=== PATIENT | male | born 1985 | race African-American/Black ===

== ENCOUNTER 2024-09-14 12:26 | Inpatient (IN) | payer OTHER, SELFPAY ==
--- OUTSIDE RECORDS SUMMARY | 2024-09-14 12:34 | XMS_ITS | Clinical Summary ---
Author Organization [facility] Address [address] [place] [address] Care Team Providers Care Physical Therapist Center Manager Name Role Phone Nguyen Kohler DO Primary Care Provider [phone] Source Comments PLEASE NOTE, if this patient is a minor, it may be UNLAWFUL to discuss sensitive information that is contained in these records (such as FAMILY PLANNING, MENTAL HEALTH or SUBSTANCE ABUSE) with the minor patient's parent or other person without the patient's specific authorization.[facility] Allergies Active Allergy Reactions Criticality Noted Date Comments Haloperidol 04/04/2024 dystonic Medications ARIPiprazole (ABILIFY) 15 mg tablet Take 15 mg by mouth once daily 01/20/2024 Active cholecalciferol (VITAMIN D-3) 25 mcg (1,000 unit) tablet Take 1 Tablet by mouth once daily 90 Tablet 3 04/04/2024 Active prazosin (MINIPRESS) 5 mg capsule Take 1 Capsule by mouth nightly at bedtime 30 Capsule 3 05/03/2024 Active buPROPion HCL (WELLBUTRIN) 100 mg tablet Take 1 Tablet by mouth 2 (two) times daily 90 Tablet 05/03/2024 Active lisinopriL 40 mg tablet Take 1 Tablet by mouth once daily 90 Tablet 3 05/03/2024 Active topiramate (TOPAMAX) 100 mg tablet Take 1 Tablet by mouth 2 (two) times daily 90 Tablet 1 05/03/2024 Active [id number]-[id number] a-fish oil 300-1,000 mg cap Take 1 Capsule by mouth daily 90 Capsule 3 05/03/2024 Active traMADoL (ULTRAM) 50 mg tablet Take 1 Tablet by mouth 3 (three) times daily as needed for pain 60 Tablet 05/16/2024 Active acetaminophen (TYLENOL) 325 mg tablet Take 2 Tablets by mouth every 4 (four) hours as needed for pain 90 Tablet 1 05/31/2024 Active cloNIDine (CATAPRES) 0.1 mg tablet Take 1 Tablet by mouth 2 (two) times daily as needed (anxiety) 90 Tablet 05/31/2024 Active gabapentin (NEURONTIN) 300 mg capsule Take 1 Capsule by mouth 3 (three) times daily 90 Capsule 05/31/2024 Active hydrOXYzine HCL (ATARAX) 25 mg tablet Take 1 Tablet by mouth 3 (three) times daily as needed for anxiety 90 Tablet 05/31/2024 Active Active Problems Problem Noted Date Diagnosed Date Housing insecurity 05/03/2024 Assessment & Plan (05/03/2024 12:20 PM EST): WHO today with [facility] and CHW team at our clinic. 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 Filled out paperwork today for [employer] bus pass and housing form. Provided food from pantry. Primary hypertension 05/03/2024 Assessment & Plan (05/03/2024 12:22 PM EST): Pt with severely elevated BP today without symptoms likely from poorly managed hypertension and pain. Reports not taking BP medications because they are at his moms house and he is not staying there right now. No CP, palpitations, SOB or severe headaches concerning for hypertensive emergency however discussed concern for risk of SAH or end organ damange. 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 Initially planned to wait until evalauted by psych (appt on 05/14) however given increasing stressors and anxiety decision was made to restart these medications today and follow up with psych still to assess/alter medications as needed. Pt reports not taking abilify and did not want this medication now. Assessment & Plan (04/04/2024 12:50 PM EST): Pt had been on abilify 15mg, topiramate 100mg, prazosin 5mg, buproprion 100mg (?BID), clonidine 01mg (prn) though has been out of meds for a month. States he has not seen any psychiatrist in many years. Reports last manic episode was 2-3 months ago after someone bothered me . Reports feeling stable now. - WHO to - urgent referral to for eval and treatment - sent trx for prazosin nightly, clonidine prn in the meantime given pt has been off meds for at least a month at this time MARIA FERNANDA (obstructive sleep apnea) 04/04/2024 Assessment & Plan (04/04/2024 12:57 PM EST): Reports hx of sleep apnea, previously using CPAP several years ago but reports the machine broke and water was shooting out of my mouth . Has not used CPAP since. Reports last sleep study was in 2011. 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 Pt reports he is not a great candidate for surgery. Currently followed by [facility] ortho with follow up on 07/04 for osteotomy discussion. Unfortunately reports he cannot have ambulation devices (rolator/wheelchair) given moving between shelters and friends homes. Given severe pain impairing ability to work and get around and unclear course of surgery will initiate pain regimen here and refer to pain clinic. - started tramadol and gabapentin TID - pt left urine tox and signed controlled substance agreement today - pain clinic referral placed - follow up in 1 month to assess pain control in meantime Assessment & Plan (04/04/2024 12:57 PM EST): See [facility] ortho for further treatment. Last seen on 02/27- Referral for discussion of osteotomy. Advised to consider restarting gabapentin with pain management. Discussed with patient that may consider adding gabapentin but would want pt to see psych first to get recommended medications confirmed. - plan for follow up in 1mo - cont with management by orhto - filled out handicap parking form Encounters Date Type Department Care Team Description 09/12/2024 Patient Outreach [facility] [address] [place] [address] Nguyen Kohler DO 09/03/2024 Patient Outreach [facility] [address] [place] [address] Nguyen Kohler DO from Last 3 Months Immunizations Immunization Administration Dates Next Due TDAP 04/04/2024 Family History Medical History Relation Name Comments Hypertension Maternal Grandfather Hypertension Maternal Grandmother renal carcinoma Maternal Grandmother Relation Name Status Comments Maternal Grandfather Maternal Grandmother Social History Tobacco Use Types Packs/Day Years Used Date Smoking Tobacco: Former Cigarettes 2 2.4 S tarted: 04/04/2022 Smokeless Tobacco: Never Alcohol Use Standard Drinks/Week Comments Not Currently 0 (1 standard drink = 0.6 oz pur e alcohol) Social Connections Answer Date Recorded Connectedness 0 03/21/2024 Financial Resource Strain Answer Date R ecorded Financial Resource Strain 0 2023 Stress Answer Date Recorded Stress 0 03/21/2024 Physical Activity Answer Date Recorded Physical Activity 0 03/21/2024 Food Insecurity Answer Date Recorded Food 2 04/24/2024 Transportation Needs Answer Date Record ed Transportation 2 04/24/2024 Housing Stability Answer Date Recorded Housing 2 04/24/2024 Safety and Environment Answer Date Tobin rded Safety 1 04/24/2024 Utilities Answer Date Recorded Utilities 1 04/24/2024 Employment Answer Date Recorded Stress 0 03/21/2024 Sex and Gender Information Value Date Recorded Sex Assigned at Male 03/21/2024 10:39 AM PST Legal Sex Male 9:16 PM PDT Gender Identity Male 04/04/2024 5:30 AM PST Sexual Orientation Not on file Last Filed Vital Signs Vital Sign Reading Time Taken Comments Blood Pressure 171/112 05/03/2024 9:05 AM EST Pulse 94 05/03/2024 9:00 AM EST Temperature 37.2 ??C (98.9 ??F) 05/03/2024 9:00 AM ES T Respiratory Rate - - Oxygen Saturation 99% 05/03/2024 9:00 AM EST Inhaled Oxygen Concentration - - Weight 158.8 kg (350 lb) 05/03/2024 9:00 AM EST Height 176.5 cm (5' 9.5 ) 05/03/2024 9:00 AM EST Body Mass Index 50.94 05/03/2024 9:00 AM EST Plan of Treatment Health Maintenance Due Date Last Done Comments Anxiety Screening 1985 Imm-Hepatitis A (1 of 2 - Ri sk 2-dose series) 2004 Imm-Hepatitis B (1 of 3 - 19 + 3-dose series) 2004 [id number] () 01/08/2024 Imm-Influenza (#1) 2024 Alcohol and Drug Screen 05/09/2024 04/04/2024 Depression Monitoring 08/01/2024 05/03/2024, Annual Preventive Care Visit 04/04/2025 04/04/2024 Tobacco Screening 05/03/2025 05/03/2024 Lipid Screening 07/14/2025 07/14/2024, 04/04/2024 Diabetes Screening 09/10/2025 09/10/2024, 0 09/03/2024, 08/13/2024, Additional history exists Imm-DTaP/Tdap/Td (2 - Td or Tdap) 04/04/2034 024 HIV Screening Completed 04/04/2024 Hepatitis C Screening Completed 08/13/2024 , 08/13/2024, 04/04/2024 Procedures Procedure Name Priority Date/Time Associated Diagnosis Comments IAAD IA HIV-1 AG W/HIV-1 & HIV-2 ANTBDY SINGLE Routine 04/04/2024 10:47 AM EST Healthcare maintenance HEPATITIS C ANTIBODY WITH RFLX TO HCV RNA PCR W/RFLX TO GENOTYPE Routine 04/04/2024 10:47 AM EST Healthcare maintenance COMPREHENSIVE METABOLIC PANEL Routine 04/04/2024 10:47 AM EST Healthcare maintenance LIPID PANEL Routine 04/04/2024 10:47 AM EST Healthcare maintenance from Last 3 Months or Most Recently Relevant to Health Maintenance Results * IAAD IA HIV-1 AG W/HIV-1 & HIV-2 ANTBDY SINGLE (04/04/2024 10:47 AM EST) HIV AG/AB COMBINED QUALITATIVE NON-REACTI VE NON-REACT LILI [facility] Blood Blood / Unknown 04/04/2024 1 0:47 AM EST 04/04/2024 10:56 AM EST us Eileen Stallings MD LAB - BLOOD DRAW Final Result Performing Organization Address [facility]/ZIP Co de Phone Number [facility] [address] [place] [address], * LIPID PANEL (04/04/2024 10:47 AM EST) CHOLESTEROL 155 <200 mg/dL [facility] Comment: CHOLESTEROL RISK CLASSIFICATION: <200 MG/DL = LOW RISK, ??200 to 239 MG/DL = BORDERLINE/HIGH RISK, ??>239 MG/DL = HIGH RISK. TRIGLYCERIDE 80 40 - 200 MG/DL [facility] HDL CHOLESTEROL 52 >34 mg/dL [facility] Comment: HDL CHOLESTEROL RISK CLASSIFICATION: ??>55 MG/DL = LOW RISK, ??<35 MG/DL = HIGH RISK. LDL CHOLESTEROL, CALCULATED 87 <130 mg/dL [facility] Comment: LDL CHOLESTEROL RISK CLASSIFICATION: <130 MG/DL = LOW RISK, ??130 to 159 MG/DL = BORDERLINE RISK, ??>159 MG/DL = HIGH RISK. Blood Blood / Unknown 04/04/2024 1 0:47 AM EST 04/04/2024 10:56 AM EST us Eileen Stallings MD LAB - BLOOD DRAW Final Result [facility] [address] [place] [address], [place] [phone] from Last 3 Months or Most Recently Relevant to Health Maintenance Insurance [place] MEDICA[place] Care Teams Physical Therapist Center Manager Relationship Specialty Start Date End Date Nguyen Kohler DO [address] [place] [id number] PCP - General Family Medicine, Physician 03/21/24
--- OUTSIDE RECORDS SUMMARY | 2024-09-14 12:34 | XMS_ITS | Encounter Summary ---
Author Organization [facility] Address [address] [place] [address] Care Team Providers Care Color Room Attendant Name Role Phone Nguyen Kohler DO Primary Care Provider [phone] Reason for Visit * Reason Comments Emergency Room Follow Up Encounter Details Date Type Department Care Team ([facility] st Contact Info) Description 09/12/2024 Patient Outreach [facility] Medicine [address] [place] [address] Nguyen Kohler DO [address] [place] [address] Social History Tobacco Use Types Packs/Day Years [...] AM PST Sexual Orientation Not on file documented as of this encounter Progress Notes * Moon Chaudhry - 09/13/2024 8:29 AM EDT 09/13/2024 8:00 AM Type of Visit: Emergency Department Date of ED/UC Visit: 09/12/24 Facility: Other in state Facility Name (In State) [facility] [address] [place] [address] Diagnosis Category/ies: Mental Health Discharge Diagnosis: Suicidal ideation (Primary Dx Disposition: (!) Admitted Records: Please see CareEverywhere for full documentation Routing to PCP and as an FYI. documented in this encounter Plan of Treatment Not on file documented as of this encounter Visit Diagnoses Not on filedocumented in this encounter Additional Health Concerns Assessment Noted Time PHQ-9 Depression Total Score: 12 04/27/ 024 9:00 AM PST documented as of this encounter Care Teams Color Room Attendant Relationship Specialty Start Date End Date Nguyen Kohler DO [address] [place] [id number] PCP - General Family Medicine, Physician 03/21/24 documented as of this encounter
--- OUTSIDE RECORDS SUMMARY | 2024-09-14 12:34 | XMS_ITS | Clinical Summary ---
Author Organization [facility] Address [address] [place] [phone] Phone Care Team Providers Care Lab Analyst Name Role Phone Javed Garcia MD, PhD Primary Care Provider [phone] Ilia Eden MD Unavailable [phone] Allergies Active Allergy Reactions Criticality Noted Date Comments Haloperidol Swelling Medium 02/28/2024 Medications Medication Sig Dispensed Refills Start Date End Date Status acetaminophen (TYLENOL) 325 mg tablet 01/20/2024 Active ARIPiprazole (ABILIFY) 15 MG tablet 01/20/2024 Active buPROPion (WELLBUTRIN) 100 MG immediate release tablet 01/20/2024 Active CHOLECALCIFEROL 25 mcg (1,000 unit) tablet 01/20/2024 Active cloNIDine HCL (CATAPRES) 0.1 MG tablet 01/20/2024 Active lisinopril (PRINIVIL,ZESTRIL) 40 MG tablet 01/20/2024 Active prazosin (MINIPRESS) 5 MG capsule 01/20/2024 Active topiramate (TOPAMAX) 100 MG tablet 01/20/2024 Active Active Problems Problem Noted Date Diagnosed Date 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 Not on jocelynn e 02/23/2024 Are you concerned about learning? Not on file 02/23/2024 No 02/23/2024 No 02/23/2024 Digital Access Answer Date Recorded No 02/23/2024 No 02/23/2024 Reliable internet access at home? Not on file 02/23/2024 Device with a working camera? Not on file Sex and Gender Information Value Date Recorded Sex Assigned at Male 02/17/2024 9:22 AM EDT Gender Identity Male 02/17/2024 9:22 AM EDT Sexual Orientation Straight 02/17/2024 9: 22 AM EDT Last Filed Vital Signs Vital Sign Reading Time Taken Comments Blood Pressure 132/76 02/28/2024 11:11 AM EDT Pulse 63 02/28/2024 11:11 AM EDT Temperature - - Respiratory Rate - - Oxygen Saturation 98% 02/28/2024 11:11 AM EDT Inhaled Oxygen Concentration - - Weight - - Height - - Body Mass Index - - Plan of Treatment Health Maintenance Due Date Last Done Comments CREATININE LEVEL 1985 LIPID PANEL 1985 POTASSIUM LEVEL 1985 DEPRESSION SCREENING 1997 SMOKING Hx and SMOKELESS TOB ACCO SCREENING 1998 HEPATITIS C SCREENING 11/01/2003 HIV ONE-TIME SCREENING (18-6 5 YEARS) 11/01/2003 COVID-19 VACCINE (2023-2 5 season) 2024 Adult Td,Tdap Booster 03/04/2026 03/04/2016 HIB VACCINES Completed 12/01/1987 PNEUMOCOCCAL VACCINES (0-49 years) Aged Out 2015 No longer eligible based on patient's age to complete this topic HEPATITIS A VACCINES Aged Out No long er eligible based on patient's age to complete this topic MENINGOCOCCAL VACCINES (ACWY) Aged Out No longer eligible based on patient's age to complete this topic Medical Devices Not on file Care Teams Lab Analyst Relationship Specialty Start Date End Date Javed Garcia MD, PhD [email or web address] PCP - General Internal Medicine 02/23/24 Ilia Eden MD [address] [place] [id number] [email or web address] 02/17/24 Additional Source Comments The information contained in this document represents components of the legal health record. It is not the complete legal health record.[facility]
[2024-09-14 13:15] VITALS: BP 191/99; PULSE 59; RESP 17; TEMP 36.4; O2SAT 100
--- NOTE | 2024-09-14 13:51 | HO.PSYADMNOT ---
[facility] Date of Service: 09/14/24 Chief Complaint: Crisis Sources of Information: patient interviewed, chart reviewed and crisis/core team assessment reviewed HPI Subjective Notes: Holm Warning and Conditional Voluntary Narrative: Patient is a 38-year-old male with history of bipolar disorder, PTSD and alcohol use disorder who presented to crisis due to suicidal ideation with a plan to slit his wrist secondary to increased depression and hallucinations. Per crisis report, patient self presented to [facility] reporting suicidal ideation with plan to slit his wrists. Patient reports not doing well due to life, being disabled and sleeping in the streets. Patient reports he was released from residential in November 2023 and has been staying on the streets since. Patient reports he wants to return to residential because there was structure and security . Patient reports he has a nephew in [place] that he would like to go live with. Patient reports visual and auditory hallucinations, voices telling him to hurt himself and others. Patient reports homicidal ideation to choke, punch, grab nuts and gouge others. History of incarceration for 8 years. During admission assessment, patient presents alert and oriented x3. Calm and cooperative. Patient reports feeling depressed; patient stated, feeling depressed because I can not even walk and I'm 38. I'm sick of everyone having to take care of me. I need two knee replacements and I am trying to hold out to see if there is something else that they can do. Patient reports he feels suicidal at times but more often feels homicidal. He reports he is not homicidal to anyone in particular. Patient reports auditory hallucinations that are demanding and commanding and visual hallucinations of people that he has never met before. Patient reports he has been drinking a bottle of vodka every few days for the past 3 weeks. He reports daily marijuana use. Patient reports he has not been medication compliant for the past 3 weeks. Patient stated, I have been forgetting to take them. I do not have a stable living situation . Patient reports that he is in hopes of being able to get his mental health together. Past Psychiatric History: Patient does not have outpatient psychiatric providers. History of multiple inpatient psychiatric hospitalizations. denies hx of SA/SIB. Medical Evaluation Reviewed: Yes PMF Family History: Mother and sister: anxiety Social History: Homeless. Single. No kids. Unemployed. Highest level of education completed 11th grade. Did not obtain GED. Substance History: Patient reports alcohol and marijuana use. Denies any other substances. Trauma History: Yes Meds/Allergies Meds Home Medications ?Medication ?Instructions ?Recorded ?Confirmed ?Type benztropine 1 mg tablet 1 mg PO Q6H 09/14/24 09/14/24 History clonidine HCl 0.1 mg tablet 0.1 mg PO BID 09/14/24 09/14/24 History gabapentin 300 mg capsule 300 mg PO TID 09/14/24 09/14/24 History lisinopril 40 mg tablet 40 mg PO DAILY 09/14/24 09/14/24 History lurasidone 80 mg tablet 80 mg PO DAILY 09/14/24 09/14/24 History topiramate 25 mg tablet 25 mg PO BID 09/14/24 09/14/24 History Allergies Allergies Allergy/AdvReac Type Severity Reaction Status Date / Time haloperidol [From HALDOL] Allergy Unknown LOCK JAW Unverified 01/24/20 17:56 From COGENTIN Allergy Unknown LOCK JAW Uncoded 01/24/20 17:56 From HALDOL Allergy Unknown LOCK JAW Uncoded 01/24/20 17:56 Mental Status Exam Mental Status Exam Patient Appearance: Appropriate Patient Orientation: Person, Place, Time and Situation Level of Consciousness: Awake and Alert Patient Behavior: Appropriate, Cooperative and Good Eye Contact Mood Description: Calm Affect Description: Calm Ability to Follow Directions: Good Speech Pattern: Clear and Appropriate Memory Description: Intact Hallucinations: Auditory and Visual Delusions: Not Present Thought Process: Intact Thought Content: positive for Intact Assessment & Plan Assessment & Plan (1) Bipolar disorder: Status: Acute Code(s): F31.9 - Bipolar disorder, unspecified (2) PTSD (post-traumatic stress disorder): Status: Acute Code(s): F43.10 - Post-traumatic stress disorder, unspecified Plan Patient is a 38-year-old male with history of bipolar disorder, PTSD and alcohol use disorder who presented to crisis due to suicidal ideation with a plan to slit his wrist secondary to increased depression and hallucinations. Plan: CV 5 minute safety checks Continue home medications [facility] protocol Obtain collateral Referral to outpatient psychiatric providers Discharge planning Patient educated on: diagnosis and medication risk/benefits Reason for continued inpatient stay Substantial Risk for: harm to self, harm to others and med/psych decompensation Statement Statement: I have reviewed the history and physical and performed a pertinent examination on my patient. No changes have occurred unless specified. If the History and Physical was not performed prior to admission, the Hospitalist's service will be consulted for completing the admission physical. Time Spent With Patient Time: Total time managing care of this patient today _60___ minutes.
[2024-09-14 13:58] VITALS: BMI 49.6
[2024-09-14] MEDS: Gabapentin 300 MG CAPSULE PO ×2 (15:20→21:05)
[2024-09-14] MEDS: Acetaminophen 325 MG TABLET 650 MG PO ×2 (15:47→21:05)
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
--- NOTE | 2024-09-14 15:53 | PC.ADMIT ---
Patient is a 38 year old male admitted from [facility] on a CV with a dx of Bipolar Disorder with Psychotic features. Patient initially presented with reports of SI with a plan to slit his wrists. Patient stated he came in d/t increased depression r/t decreased immobility/independence. 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 Patient states between this and his current living situation (he is currently homeless), he has had trouble coping, I don't drink every day but when I feel like shit I'll drink a lot, and the last 3 weeks I've just been really depressed that I can't do shit for myself . Patient denies any hx of Suicidal attempts but endorses vague HI I'm more homicidal than suicidal , patient unable to give an answer on who HI is directed towards and when asked if he felt like he would kill/harm someone patient stated I don't know if I can answer that, I'm on probation right now I can't say the wrong things . Pt also endorses command and demanding AH They tell me to do random things, like throw that, or yell something out and VH that he calls his imaginary friends . Patient has been off his medications for three weeks, and states he doesn't have time to take them. His appetite is good but sleep has been poor. Pt reports being diagnosed with sleep apnea but states his CPAP is broken and thus has not been using one . His TOX screen was positive for marijuana and Ethanol level 124 on initial admission to [facility] (denies any hx of seizures from withdrawals). Patient utilizes a walker, and was given a hospital one upon admission to the unit (placed on 5 minute checks for safety). Skin check was unremarkable, and patient states his goal is To fix my mental health, get my medications situated and be healthier .
--- NOTE | 2024-09-14 16:49 | PC.NURSE ---
This nurse attempted to call the patients ict customer support officer Cruz Castellano (per his request) to inform her that the patient is here. Cruz did not answer, and our unit phone number was left on her voicemail for her to reach back out to us.
[2024-09-14 20:11] VITALS: BP 167/95; PULSE 98; RESP 18; TEMP 37.1; O2SAT 98
[2024-09-14] MEDS: cloNIDine HCL 0.1 MG TABLET PO (21:05)
[2024-09-14] MEDS: Topiramate 25 MG TABLET PO (21:05)
[2024-09-15 08:00] VITALS: BP 136/90; PULSE 75; RESP 16; TEMP 36.8; O2SAT 100
[2024-09-15] MEDS: Gabapentin 300 MG CAPSULE PO ×3 (08:34→22:23)
[2024-09-15] MEDS: Thiamine HCL 100 MG TABLET PO (08:35)
[2024-09-15] MEDS: NaPROXEN 500 MG TABLET PO ×2 (08:35→17:15)
[2024-09-15] MEDS: cloNIDine HCL 0.1 MG TABLET PO ×2 (08:35→22:22)
[2024-09-15] MEDS: Topiramate 25 MG TABLET PO ×2 (08:36→22:23)
[2024-09-15] MEDS: Lurasidone HCl 80 MG TABLET PO (08:36)
[2024-09-15] MEDS: lisinopriL 40 MG TABLET PO (08:36)
[2024-09-15] MEDS: Nicotine 21 MG PATCH.TD24 TRANSDERMA (08:37)
[2024-09-15] MEDS: Lidocaine 4 % Patch ADH..PATCH 2 PATCH TRANSDERMA (08:40)
[2024-09-15 10:29] LABS: Estimated Average Glucose 103 mg/dL; Hemoglobin A1C 125.5488 umol/L; Hemoglobin A1c % 5.2 % (<6.0); Total Hemoglobin (HGBA1C) 3809.1329 umol/L
[2024-09-15 10:40] LABS: Alanine Aminotransferase 22 U/L (0-40); Albumin Level 4.3 g/dL (3.5-5.0); Alkaline Phosphatase 95 U/L (39-117); Anion Gap 15 (12-20); Aspartate Amino Transferase 21 U/L (5-37); Bilirubin Total 0.3 mg/dL (0.0-1.0); Blood Urea Nitrogen 22 mg/dL (9-16); Calcium 9.7 mg/dL (8.4-10.2); Carbon Dioxide 27 mmol/L (22-29); Chloride 105 mmol/L (96-108); Cholesterol 194 mg/dL (<200); Creatinine Clr Calc Pharmacy 139.8; Estimated Glomerular Filt Rate > 60; Glucose Random 76 mg/dL (60-115); HDL Cholesterol 55 mg/dL (>40); LDL Cholesterol Calculated 113 mg/dL (<100); Potassium 4.6 mmol/L (3.3-5.1); Sodium 142 mmol/L (135-145); Triglycerides 130 mg/dL (<150)
--- NOTE | 2024-09-15 10:59 | HO.PSYCHPN ---
Subjective Subjective Date of Service: 09/15/24 Reason For Visit: Crisis Subjective Notes: Conditional Voluntary Healthcare Proxy: No Guardianship: No Medical Problems Affecting Mental Status: No Interim History: Patient was seen and discussed in rounds today. Records and plans were reviewed. He has been stable and has settled in. He is requesting to use his own walker, demonstrating that the hospital walker is much more unsafe, being able to take it apart in several sec etc.. I okayed that order. Also requesting to use his own coffee grind. Requesting to continue vitamin-D but does not know the dose so I ordered 1 daily tablet of vitamin-D. Eating and sleeping adequately. No active SI. No other complaints or changes. Review of Systems Review of Systems Yes all other systems are reviewed and are negative Mental Status Exam Mental Status Exam Patient Appearance: Appropriate Patient Orientation: Person, Place, Time and Situation Level of Consciousness: Awake and Alert Patient Behavior: Appropriate, Cooperative and Good Eye Contact Mood Description: Calm Affect Description: Calm Ability to Follow Directions: Good Speech Pattern: Clear and Appropriate Memory Description: Intact Hallucinations: Auditory and Visual Delusions: Not Present Thought Process: Intact Thought Content: positive for Intact Diagnostics Vital Signs (24Hr): Vital Signs - 24 hr 09/14/24 13:15 09/14/24 20:11 09/15/24 08:00 Temperature 97.5 F 98.7 F 98.2 F Pulse Rate 59 98 75 Respiratory Rate 17 18 16 Blood Pressure 191/99 H 167/95 H 136/90 H Pulse Oximetry 100 98 100 Oxygen Delivery Method Room Air Room Air Room Air BMI result Body Mass Index 49.6 Labs 09/15/24 10:02 Labs: Laboratory Results - last 48 hr 09/15/24 10:02 Sodium 142 Potassium 4.6 Chloride 105 Carbon Dioxide 27 Anion Gap 15 BUN 22 H Creatinine 1.08 Estim Creat Clear Calc 139.8 Estimated GFR > 60 Random Glucose 76 Estimat Average Glucose 103 Hemoglobin A1c % 5.2 Calcium 9.7 Total Bilirubin 0.3 AST 21 ALT 22 Alkaline Phosphatase 95 Total Protein 8.0 Albumin 4.3 Triglycerides 130 Cholesterol 194 LDL Cholesterol, Calc 113 H HDL Cholesterol 55 Medications Medications Current Medications Acetaminophen (Acetaminophen 325 Mg Tablet) 650 mg PO Q6H PRN PRN Reason: Headache/Pain, Scale 1-10 Last Admin: 09/14/24 21:05 Dose: 650 mg Al Hydroxide/Mg Hydroxide (Magnesium Hydrox/Alum Hydrox 30 Ml Oral.Susp) 30 ml PO Q6H PRN PRN Reason: Heartburn/Nausea Clonidine HCl (Clonidine Hcl 0.1 Mg Tablet) 0.1 mg PO BID [facility]; Protocol Last Admin: 09/15/24 08:35 Dose: 0.1 mg Gabapentin (Gabapentin 300 Mg Capsule) 300 mg PO TID [facility] Last Admin: 09/15/24 08:34 Dose: 300 mg Hydroxyzine HCl (Hydroxyzine Hcl 25 Mg Tablet) 25 mg PO Q6H PRN PRN Reason: mild anxiety Lidocaine (Lidocaine 4 % Patch Adh..Patch) 2 patch TRANSDERMA DAILY [facility]; Protocol Last Admin: 09/15/24 08:40 Dose: 2 patch Lisinopril (Lisinopril 40 Mg Tablet) 40 mg PO DAILY [facility]; Protocol Last Admin: 09/15/24 08:36 Dose: 40 mg Lorazepam (Lorazepam 1 Mg Tablet) 1 mg PO Q2H PRN PRN Reason: CIWA 8-11 Lorazepam (Lorazepam 1 Mg Tablet) 2 mg PO Q2H PRN PRN Reason: CIWA 12-15 Lorazepam (Lorazepam 1 Mg Tablet) 3 mg PO Q2H PRN PRN Reason: CIWA > 15, and call Lurasidone HCl (Lurasidone Hcl 80 Mg Tablet) 80 mg PO DAILY [facility] Last Admin: 09/15/24 08:36 Dose: 80 mg Magnesium Hydroxide (Milk Of Magnesia 30 Ml Oral.Susp) 30 ml PO DAILY PRN PRN Reason: Constipation Melatonin (Melatonin 3 Mg Tablet) 9 mg PO BEDTIME PRN PRN Reason: Insomnia Naproxen (Naproxen 500 Mg Tablet) 500 mg PO BIDWM [facility] Last Admin: 09/15/24 08:35 Dose: 500 mg Nicotine (Nicotine 21 Mg Patch.Td24) 21 mg TRANSDERMA DAILY [facility] Last Admin: 09/15/24 08:37 Dose: 21 mg Nicotine Polacrilex (Nicotine Polacrilex 2 Mg Gum) 4 mg BUCCAL Q2H PRN PRN Reason: Nicotine Cravings Olanzapine (Olanzapine 5 Mg Tablet) 5 mg PO Q4H PRN PRN Reason: agitation Thiamine HCl (Thiamine Hcl 100 Mg Tablet) 100 mg PO DAILY [facility] Last Admin: 09/15/24 08:35 Dose: 100 mg Topiramate (Topiramate 25 Mg Tablet) 25 mg PO BID [facility] Last Admin: 09/15/24 08:36 Dose: 25 mg Tramadol HCl (Tramadol Hcl 50 Mg Tablet) 50 mg PO Q6H PRN PRN Reason: severe knee pain Trazodone HCl (Trazodone Hcl 50 Mg Tablet) 50 mg PO BEDTIME MRX1 PRN PRN Reason: Insomnia Vitamin D (Cholecalciferol (Vitamin D3) 25 Mcg Tablet) 50 mcg PO DAILY VIKAS Allergies Allergies Allergy/AdvReac Type Severity Reaction Status Date / Time haloperidol [From HALDOL] Allergy Unknown LOCK JAW Verified 09/14/24 21:50 From COGENTIN Allergy Unknown LOCK JAW Uncoded 01/24/20 17:56 From HALDOL Allergy Unknown LOCK JAW Uncoded 01/24/20 17:56 Assessment & Plan Assessment & Plan (1) Bipolar disorder: Status: Acute Code(s): F31.9 - Bipolar disorder, unspecified (2) PTSD (post-traumatic stress disorder): Status: Acute Code(s): F43.10 - Post-traumatic stress disorder, unspecified Plan Patient is a 38-year-old male with history of bipolar disorder, PTSD and alcohol use disorder who presented to crisis due to suicidal ideation with a plan to slit his wrist secondary to increased depression and hallucinations. Plan: CV 5 minute safety checks Continue home medications [facility] protocol Obtain collateral Referral to outpatient psychiatric providers Discharge planning 09/15: Continue current regimen and plans Patient educated on: medication risk/benefits Reason for continued inpatient stay Substantial Risk for: harm to self and med/psych decompensation Time Spent With Patient Time: Total time managing care of this patient today ____ minutes.
[2024-09-15] MEDS: Cholecalciferol (Vitamin D3) 25 MCG TABLET 50 MCG PO (11:08)
[2024-09-15 21:26] VITALS: BP 169/96; PULSE 88; RESP 18; TEMP 36.9; O2SAT 99
[2024-09-15] MEDS: Melatonin 3 MG TABLET 9 MG PO (22:35)
[2024-09-15] MEDS: traZODone HCL 50 MG TABLET PO (22:35)
[2024-09-15] MEDS: traMADoL HCL 50 MG TABLET PO (22:35)
[2024-09-15] MEDS: hydrOXYzine HCL 25 MG TABLET PO (22:35)
[2024-09-15] MEDS: Acetaminophen 325 MG TABLET 650 MG PO (22:36)
[2024-09-16 07:48] VITALS: BP 143/91; PULSE 72; RESP 16; TEMP 36.4; O2SAT 99
[2024-09-16] MEDS: Lurasidone HCl 80 MG TABLET PO (08:24)
[2024-09-16] MEDS: NaPROXEN 500 MG TABLET PO ×2 (08:24→16:33)
[2024-09-16] MEDS: Topiramate 25 MG TABLET PO ×2 (08:24→22:34)
[2024-09-16] MEDS: Cholecalciferol (Vitamin D3) 25 MCG TABLET 50 MCG PO (08:24)
[2024-09-16] MEDS: Gabapentin 300 MG CAPSULE PO ×3 (08:24→22:32)
[2024-09-16] MEDS: Thiamine HCL 100 MG TABLET PO (08:24)
[2024-09-16] MEDS: lisinopriL 40 MG TABLET PO (08:24)
[2024-09-16] MEDS: cloNIDine HCL 0.1 MG TABLET PO (08:24)
[2024-09-16] MEDS: Acetaminophen 325 MG TABLET 650 MG PO ×3 (09:48→22:41)
[2024-09-16] MEDS: traMADoL HCL 50 MG TABLET PO ×3 (09:48→22:41)
[2024-09-16] MEDS: Nicotine 21 MG PATCH.TD24 TRANSDERMA (09:48)
--- NOTE | 2024-09-16 10:15 | HO.PSYCHPN ---
Subjective Subjective Date of Service: 09/16/24 Reason For Visit: Crisis Subjective Notes: Conditional Voluntary Healthcare Proxy: No Guardianship: No Medical Problems Affecting Mental Status: No Interim History: Patient was seen and discussed in rounds today. Records and plans were reviewed. He is doing well and has been stable. He is not sleeping and I increased his trazodone to 100 mg, clonidine to 0 point 0 2 mg and he has been on prazosin 10 mg which I resumed. No SI. No mood instability. CIWA was discontinued. Review of Systems Review of Systems Sleep Yes all other systems are reviewed and are negative Mental Status Exam Mental Status Exam Patient Appearance: Appropriate Patient Orientation: Person, Place, Time and Situation Level of Consciousness: Awake and Alert Patient Behavior: Appropriate, Cooperative and Good Eye Contact Mood Description: Calm Affect Description: Calm Ability to Follow Directions: Good Speech Pattern: Clear and Appropriate Memory Description: Intact Hallucinations: Auditory and Visual Delusions: Not Present Thought Process: Intact Thought Content: positive for Intact Diagnostics Vital Signs (24Hr): Vital Signs - 24 hr 09/15/24 21:26 09/16/24 07:48 Temperature 98.5 F 97.6 F Pulse Rate 88 72 Respiratory Rate 18 16 Blood Pressure 169/96 H 143/91 H Pulse Oximetry 99 99 Oxygen Delivery Method Room Air BMI result Body Mass Index 49.6 Labs 09/15/24 10:02 Labs: Laboratory Results - last 48 hr 09/15/24 10:02 Sodium 142 Potassium 4.6 Chloride 105 Carbon Dioxide 27 Anion Gap 15 BUN 22 H Creatinine 1.08 Estim Creat Clear Calc 139.8 Estimated GFR > 60 Random Glucose 76 Estimat Average Glucose 103 Hemoglobin A1c % 5.2 Calcium 9.7 Total Bilirubin 0.3 AST 21 ALT 22 Alkaline Phosphatase 95 Total Protein 8.0 Albumin 4.3 Triglycerides 130 Cholesterol 194 LDL Cholesterol, Calc 113 H HDL Cholesterol 55 Medications Medications Current Medications Acetaminophen (Acetaminophen 325 Mg Tablet) 650 mg PO Q6H PRN PRN Reason: Headache/Pain, Scale 1-10 Last Admin: 09/16/24 09:48 Dose: 650 mg Al Hydroxide/Mg Hydroxide (Magnesium Hydrox/Alum Hydrox 30 Ml Oral.Susp) 30 ml PO Q6H PRN PRN Reason: Heartburn/Nausea Clonidine HCl (Clonidine Hcl 0.2 Mg Tablet) 0.2 mg PO BID [facility]; Protocol Gabapentin (Gabapentin 300 Mg Capsule) 300 mg PO TID [facility] Last Admin: 09/16/24 08:24 Dose: 300 mg Hydroxyzine HCl (Hydroxyzine Hcl 25 Mg Tablet) 25 mg PO Q6H PRN PRN Reason: mild anxiety Last Admin: 09/15/24 22:35 Dose: 25 mg Lidocaine (Lidocaine 4 % Patch Adh..Patch) 2 patch TRANSDERMA DAILY [facility]; Protocol Last Admin: 09/15/24 08:40 Dose: 2 patch Lisinopril (Lisinopril 40 Mg Tablet) 40 mg PO DAILY [facility]; Protocol Last Admin: 09/16/24 08:24 Dose: 40 mg Lorazepam (Lorazepam 1 Mg Tablet) 1 mg PO Q2H PRN PRN Reason: CIWA 8-11 Lorazepam (Lorazepam 1 Mg Tablet) 2 mg PO Q2H PRN PRN Reason: CIWA 12-15 Lorazepam (Lorazepam 1 Mg Tablet) 3 mg PO Q2H PRN PRN Reason: CIWA > 15, and call Lurasidone HCl (Lurasidone Hcl 80 Mg Tablet) 80 mg PO DAILY [facility] Last Admin: 09/16/24 08:24 Dose: 80 mg Magnesium Hydroxide (Milk Of Magnesia 30 Ml Oral.Susp) 30 ml PO DAILY PRN PRN Reason: Constipation Melatonin (Melatonin 3 Mg Tablet) 9 mg PO BEDTIME PRN PRN Reason: Insomnia Last Admin: 09/15/24 22:35 Dose: 9 mg Naproxen (Naproxen 500 Mg Tablet) 500 mg PO BIDWM [facility] Last Admin: 09/16/24 08:24 Dose: 500 mg Nicotine (Nicotine 21 Mg Patch.Td24) 21 mg TRANSDERMA DAILY [facility] Last Admin: 09/16/24 09:48 Dose: 21 mg Nicotine Polacrilex (Nicotine Polacrilex 2 Mg Gum) 4 mg BUCCAL Q2H PRN PRN Reason: Nicotine Cravings Olanzapine (Olanzapine 5 Mg Tablet) 5 mg PO Q4H PRN PRN Reason: agitation Prazosin HCl (Prazosin Hcl 5 Mg Capsule) 10 mg PO BEDTIME [facility]; Protocol Thiamine HCl (Thiamine Hcl 100 Mg Tablet) 100 mg PO DAILY [facility] Last Admin: 09/16/24 08:24 Dose: 100 mg Topiramate (Topiramate 25 Mg Tablet) 25 mg PO BID [facility] Last Admin: 09/16/24 08:24 Dose: 25 mg Tramadol HCl (Tramadol Hcl 50 Mg Tablet) 50 mg PO Q6H PRN PRN Reason: severe knee pain Last Admin: 09/16/24 09:48 Dose: 50 mg Trazodone HCl (Trazodone Hcl 100 Mg Tablet) 100 mg PO BEDTIME MRX1 PRN PRN Reason: Insomnia Vitamin D (Cholecalciferol (Vitamin D3) 25 Mcg Tablet) 50 mcg PO DAILY [facility] Last Admin: 09/16/24 08:24 Dose: 50 mcg Allergies Allergies Allergy/AdvReac Type Severity Reaction Status Date / Time haloperidol [From HALDOL] Allergy Unknown LOCK JAW Verified 09/14/24 21:50 From COGENTIN Allergy Unknown LOCK JAW Uncoded 01/24/20 17:56 From HALDOL Allergy Unknown LOCK JAW Uncoded 01/24/20 17:56 Assessment & Plan Assessment & Plan (1) Bipolar disorder: Status: Acute Code(s): F31.9 - Bipolar disorder, unspecified (2) PTSD (post-traumatic stress disorder): Status: Acute Code(s): F43.10 - Post-traumatic stress disorder, unspecified Plan Patient is a 38-year-old male with history of bipolar disorder, PTSD and alcohol use disorder who presented to crisis due to suicidal ideation with a plan to slit his wrist secondary to increased depression and hallucinations. Plan: CV 5 minute safety checks Continue home medications CIWA protocol Obtain collateral Referral to outpatient psychiatric providers Discharge planning 09/15: Continue current regimen and plans 09/16: Continue current regimen and plans. Discontinued CIWA. Increase trazodone, clonidine and added prazosin Patient educated on: medication risk/benefits Reason for continued inpatient stay Substantial Risk for: med/psych decompensation Time Spent With Patient Time: Total time managing care of this patient today ____ minutes.
[2024-09-16] MEDS: Lidocaine 4 % Patch ADH..PATCH 2 PATCH TRANSDERMA (12:23)
[2024-09-16 20:00] VITALS: BP 135/78; PULSE 90; RESP 16; TEMP 36.6; O2SAT 100
[2024-09-16 22:32] VITALS: BP 135/78
[2024-09-16] MEDS: Prazosin HCL 5 MG CAPSULE 10 MG PO (22:32)
[2024-09-16 22:33] VITALS: BP 135/78
[2024-09-16] MEDS: cloNIDine HCL 0.2 MG TABLET PO (22:33)
[2024-09-16] MEDS: traZODone HCL 100 MG TABLET PO (22:40)
[2024-09-16] MEDS: Melatonin 3 MG TABLET 9 MG PO (22:40)
[2024-09-16] MEDS: hydrOXYzine HCL 25 MG TABLET PO (22:43)
[2024-09-16] MEDS: Nicotine Polacrilex 2 MG GUM 4 MG BUCCAL (22:43)
[2024-09-17] MEDS: traZODone HCL 100 MG TABLET PO (03:18)
[2024-09-17] MEDS: hydrOXYzine HCL 25 MG TABLET PO (03:18)
[2024-09-17 07:15] VITALS: BP 130/71; PULSE 87; RESP 14; TEMP 36.5; O2SAT 99
[2024-09-17] MEDS: Gabapentin 300 MG CAPSULE PO (08:46)
[2024-09-17] MEDS: NaPROXEN 500 MG TABLET PO (08:46)
[2024-09-17] MEDS: Thiamine HCL 100 MG TABLET PO (08:46)
[2024-09-17 08:47] VITALS: BP 130/71
[2024-09-17] MEDS: lisinopriL 40 MG TABLET PO (08:47)
[2024-09-17] MEDS: Topiramate 25 MG TABLET PO (08:47)
[2024-09-17] MEDS: Cholecalciferol (Vitamin D3) 25 MCG TABLET 50 MCG PO (08:47)
[2024-09-17] MEDS: Lurasidone HCl 80 MG TABLET PO (08:47)
[2024-09-17] MEDS: traMADoL HCL 50 MG TABLET PO (08:56)
[2024-09-17] MEDS: Acetaminophen 325 MG TABLET 650 MG PO (08:56)
[2024-09-17] MEDS: Lidocaine 4 % Patch ADH..PATCH 2 PATCH TRANSDERMA (11:14)
[2024-09-17] MEDS: Nicotine 21 MG PATCH.TD24 TRANSDERMA (11:15)
--- NOTE | 2024-09-17 11:40 | PC.NURSE ---
Patient submitted three day notice.
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
[2024-09-20 15:18] LABS: Vitamin D 25-OH, D2 <4 ng/mL; Vitamin D 25-OH, D3 22 ng/mL; Vitamin D 25-OH, Total 22 ng/mL (30-100)
== END 2024-09-17 11:54 | disposition home or self-care (01) | DRG 753 ==
PROVIDERS: Psychiatry & Neurology Psychiatry; Admitting Provider Psychiatry & Neurology Psychiatry; Responsible Provider Registered Nurse; Visit Provider Psychiatry & Neurology Psychiatry
DX: F31.9 Bipolar disorder, unspecified (principal); R45.851 Suicidal ideations; E66.01 Morbid (severe) obesity due to excess calories; G47.33 Obstructive sleep apnea (adult) (pediatric); F43.12 Post-traumatic stress disorder, chronic; M92.513 Juvenile osteochondrosis of proximal tibia, bilateral; I10 Essential (primary) hypertension; Z68.42 Body mass index [BMI] 45.0-49.9, adult; Z71.3 Dietary counseling and surveillance; Z59.02 Unsheltered homelessness; Z79.899 Other long term (current) drug therapy
CPT/HCPCS: 36415; 80053; 80061; 82306; 83036; 94660

== ENCOUNTER → 2024-09-14 12:26 | Outpatient (BNV) | payer OTHER, SELFPAY | PROVIDERS: Admitting Provider Psychiatry & Neurology Psychiatry; Visit Provider Psychiatry & Neurology Psychiatry | DX: F31.4 Bipolar disorder, current episode depressed, severe, without psychotic features (principal); F43.10 Post-traumatic stress disorder, unspecified | CPT/HCPCS: 99232; 99233 ==

== ENCOUNTER → 2024-09-14 12:26 | Outpatient (BNV) | payer OTHER, SELFPAY | PROVIDERS: Admitting Provider Psychiatry & Neurology Psychiatry; Visit Provider Nurse Practitioner Family | DX: I10 Essential (primary) hypertension (principal) | CPT/HCPCS: 99222 ==

== ENCOUNTER 2024-09-17 13:40 | Emergency (ER) | payer OTHER, SELFPAY ==
--- NOTE | ~2024-09-17 | CT_ITS ---
EXAMINATION: CT ANGIOGRAM CHEST CLINICAL INFORMATION: Dizziness. Positive troponin. COMPARISON: May 19, 2012 is not available on PACS. TECHNIQUE: Multiple axial images were obtained through the chest after the administration of 100 mL of Omnipaque 350 intravenous contrast. Extensive vascular post-processing including two-dimensional and three-dimensional reformatted images were created and reviewed on an independent workstation. SmartPrep technique. This CT examination was performed using dose optimization techniques as appropriate, variously including the following: *Automated exposure control *Adjustment of mA and/or kV according to patient size (this includes techniques or standardized protocols for targeted exams where dose is matched to indication/reason for exam; i.e. extremities or head) *Use of iterative reconstruction technique DLP: 589 mGy centimeter. FINDINGS: Limited by patient's motion artifact. The main pulmonary artery or its main branches and subsegmental pulmonary branches are patent without intraluminal filling defects. No aneurysm or dissection, thoracic aorta. No pericardial effusion. There is an 11 mm metallic hollow foreign body dislodged and the posterior segment right upper lung lobe similar to the one described on prior CT dated 2012. Pulmonary patchy groundglass, peripheral lower lung lobes. Old healed rib fractures in the anterior and posterior aspect of the ribs right hemithorax. No pleural effusion. No hemothorax. Heart is not enlarged. Prominent inferior vena cava. Collapsed gallbladder. Mild multilevel thoracic spondylosis without acute fracture or gross listhesis. CT/CT angio chest PE protocol IMPRESSION: No acute pulmonary artery emboli. No aneurysm or dissection. Nonspecific pulmonary patchy groundglass. Fleischner guidelines were followed. Electronically signed by: Arie Kenney MD 09/17/2024 03:33 PM EDT
[2024-09-17 13:57] VITALS: BP 99/63; PULSE 122; RESP 18; TEMP 36.8; O2SAT 99; BMI 50.8
--- NOTE | 2024-09-17 14:03 | ECG_ITS ---
Test Reason : dizzy spells Blood Pressure : */* mmHG Vent. Rate : 111 BPM Atrial Rate : 111 BPM P-R Int : 150 ms QRS Dur : 90 ms QT Int : 346 ms P-R-T Axes : 55 7 33 degrees QTcB Int : 470 ms Sinus tachycardia Otherwise normal ECG No previous ECGs available Referred By: Clinton Sanchez Electronically Signed By: RALPH MONTANEZ MD
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
[2024-09-17 14:20] LABS: MANUAL DIFF FLAG NO
[2024-09-17 14:22] LABS: Basophils Absolute Auto 0.1 X10*3/uL (0.0-0.2); Basophils Percent Auto 0.8 % (0-2); Eosinophils Absolute Auto 0.9 X10*3/uL (0.0-0.4); Eosinophils Percent Auto 14.3 % (0-4); Hematocrit 40.7 % (42.0-52.0); Hemoglobin 13.1 g/dl (14.0-18.0); Imm Gran Abs Auto 0.02 X10*3/uL (0.00-0.03); Imm Gran Pct Auto 0.3 % (0.0-0.4); Lymphocytes Absolute Auto 1.6 X10*3/uL (1.2-4.9); Mean Corpuscular HGB Conc 32.2 g/dl (31.0-36.0); Mean Platelet Volume 9.2 fL (9.4-12.4); Monocytes Absolute Auto 0.5 X10*3/uL (0.1-1.2); Monocytes Percent Auto 8.2 % (2-11); Neutrophils Percent Auto 49.4 % (45-73); Platelet Count 190 X10*3/uL (160-400); Red Blood Count 4.52 X10*6/uL (4.60-5.80); Red Cell Distribution Width 14.4 % (11.0-16.0); White Blood Count 6.1 X10*3/uL (4.8-10.8)
[2024-09-17 14:37] LABS: Alanine Aminotransferase 17 U/L (0-40); Alkaline Phosphatase 83 U/L (39-117); Anion Gap 11 (12-20); Aspartate Amino Transferase 26 U/L (5-37); Bilirubin Total 0.2 mg/dL (0.0-1.0); Blood Urea Nitrogen 29 mg/dL (9-16); Calcium 9.1 mg/dL (8.4-10.2); Carbon Dioxide 25 mmol/L (22-29); Chloride 108 mmol/L (96-108); Creatinine Clr Calc Pharmacy 127.5; Estimated Glomerular Filt Rate > 60; Glucose Random 104 mg/dL (60-115); Lipase 20 U/L (8-78); Potassium 4.5 mmol/L (3.3-5.1); Sodium 139 mmol/L (135-145); Total Protein 7.1 g/dL (6.5-8.0)
[2024-09-17 14:42] LABS: Troponin-I High Sensitivity 45.5 ng/L (<3.5-35.0)
--- OUTSIDE RECORDS SUMMARY | 2024-09-17 14:49 | XMS_ITS | Clinical Summary ---
Author Organization [facility] Address [address] [place] [address] Care Team Providers Care Training Development Manager Name Role Phone Nguyen Kohler DO Primary Care Provider [phone] Source Comments PLEASE NOTE, if this patient [...] times daily 90 Tablet 1 05/03/2024 Active [id number] a-fish oil 300-1,000 mg cap Take 1 [...] (05/03/2024 12:20 PM EST): WHO today with [facility] and CHW team at our clinic. Pt with short term housing however requiring long-term housing plan. Filled out paperwork today for [employer] bus pass and housing form. Provided food [...] rx for lisinopril to pharmacy today to shrimp picker - follow up in 1 month and if continues to be elevated despite taking regularly will add another agent Bipolar 1 disorder ([facility]) 04/04/2024 Assessment & Plan (05/03/2024 12:23 PM [...] 2011. 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 Pt reports he is not a great candidate for surgery. Currently followed by [facility] ortho with follow up on 07/04 for [...] & Plan (04/04/2024 12:57 PM EST): See [facility] ortho for further treatment. Last seen on [...] Department Care Team Description 09/12/[address] [facility] [address] [place] [address] Nguyen Kohler DO 09/03/[address] [facility] [address] [place] [address] Nguyen Kohler DO from Last 3 Months Immunizations Immunization Administration Dates Next Due TDAP 04/04/2024 Family History Medical History Relation Name Comments Hypertension Maternal Grandfather Hypertension Maternal Grandmother renal carcinoma Maternal Grandmother Relation Name Status Comments Maternal Grandfather Maternal Grandmother Social History Tobacco Use Types Packs/Day Years Used Date Smoking Tobacco: Former Cigarettes 2 2.5 S tarted: 04/04/2022 Smokeless Tobacco: Never Alcohol [...] 3 - 19 + 3-dose series) 2004 [id number] () 01/08/2024 Imm-Influenza (#1) 2024 03/04/2016, 1 , 01/29/2013, Additional history exists Alcohol and Drug Screen 05/09/2024 04/04/2024 Depression Monitoring 08/01/2024 05/03/2024, 024 Annual Preventive Care Visit 04/04/2025 04/04/2024 Tobacco Screening 05/03/2025 05/03/2024 Lipid Screening 07/14/2025 07/14/2024, 04/04/2024 Diabetes Screening 09/10/2025 09/10/2024, 0 09/03/2024, 08/13/2024, Additional history exists Imm-DTaP/Tdap/Td (4 - Td or Tdap) 04/04/2034 04/04/2024, 03/04/2016, 03/06/2012, Additional history exists HIV Screening Completed 04/04/2024 Hepatitis C Screening [...] AG/AB COMBINED QUALITATIVE NON-REACTI VE NON-REACT LILI [facility] Blood Blood / Unknown 04/04/2024 1 0:47 AM EST 04/04/2024 10:56 AM EST us Eileen Stallings MD LAB - BLOOD DRAW Final Result Performing Organization Address [facility]/ZIP Co de Phone Number [facility] [address] [place] [address], * LIPID PANEL (04/04/2024 10:47 AM EST) CHOLESTEROL 155 <200 mg/dL [facility] Comment: CHOLESTEROL RISK CLASSIFICATION: <200 MG/DL = LOW RISK, ??200 to 239 MG/DL = BORDERLINE/HIGH RISK, ??>239 MG/DL = HIGH RISK. TRIGLYCERIDE 80 40 - 200 MG/DL [facility] HDL CHOLESTEROL 52 >34 mg/dL [facility] Comment: HDL CHOLESTEROL RISK CLASSIFICATION: ??>55 MG/DL = LOW RISK, ??<35 MG/DL = HIGH RISK. LDL CHOLESTEROL, CALCULATED 87 <130 mg/dL [facility] Comment: LDL CHOLESTEROL RISK CLASSIFICATION: <130 MG/DL = LOW RISK, ??130 to 159 MG/DL = BORDERLINE RISK, ??>159 MG/DL = HIGH RISK. Blood Blood / Unknown 04/04/2024 1 0:47 AM EST 04/04/2024 10:56 AM EST us Eileen Stallings MD LAB - BLOOD DRAW Final Result Performing Organization Address City/[facility]/ZIP Co de Phone Number [facility] [address] [place] [address], from Last 3 Months or Most Recently Relevant to Health Maintenance Insurance [place] MEDICAID Care Teams Training Development Manager Relationship Specialty Start Date End Date Nguyen Kohler DO [address] [place] [id number] PCP - General Family Medicine, Physician 03/21/24
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
--- OUTSIDE RECORDS SUMMARY | 2024-09-17 14:49 | XMS_ITS | Encounter Summary ---
Author Organization [facility] Address [address] [place] [address] Care Team Providers Care Flight Follower Name Role Phone Physician, Pcp Unknown Primary Care Provider Anna vailable Encounter Details Date Type Department Care Team (Late st Contact Info) Description 07/14/2024 Lab Requisition [facility] - Main Lab [address] [facility] [employer] [place] [place] [address] Social History Tobacco Use Types Packs/Day Years Used Date Smoking Tobacco: Never Alcohol Use Standard Drinks/Week Comments Yes 0 (1 standard drink = 0.6 oz pur e alcohol) Sex and Gender Information Value Date Recorded Sex Assigned at Not on file Legal Sex Male 7:43 PM EST Gender Identity Not on file Sexual Orientation Not on file documented as of this encounter Plan of Treatment Not on file documented as of this encounter Visit Diagnoses Not on filedocumented in this encounter Care Teams Flight Follower Relationship Specialty Start Date End Date Physician, Pcp Unknown PCP - General 09/10/24 documented as of this encounter
--- OUTSIDE RECORDS SUMMARY | 2024-09-17 14:49 | XMS_ITS | Encounter Summary ---
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 Name Role Phone Physician, Pcp Unknown Primary Care Provider Anna vailable Reason for Visit * Reason Comments Suicidal Encounter Details Date Type Department Care Team ([facility] st Contact Info) Description 09/10/2024 4:01 PM EDT - 09/12/2024 11:16 AM EDT Emergency [facility] Emergency [address] [place] [id number] Humberto Condon, DO [address] [place] [address] Saulo Neely MD [address] [address] Kevyn Tripp MD [address] [place] [address] Klever Suero MD [address] [place] [address] Suicidal ideation (Primary Dx) Discharge Disposition: Psychiatric Hospital Social History Tobacco Use Types Packs/Day Years [...] Sign Reading Time Taken Comments Blood Pressure 116/75 09/12/2024 8:52 AM EDT Pulse 75 09/12/2024 8:52 AM EDT Temperature 36.8 ??C (98.3 ??F) 09/12/2024 8:52 AM ED T Respiratory Rate 17 09/12/2024 8:52 AM EDT Oxygen Saturation 100% 09/12/2024 8:52 AM EDT Inhaled Oxygen Concentration - - Weight 154 kg (340 lb) 09/10/2024 8:23 PM EDT Height 180.3 cm (5' 11 ) 09/10/2024 8:23 PM EDT Body Mass Index 47.42 09/10/2024 8:23 PM EDT documented in this encounter Discharge Summaries * Nino Weaver RN - 09/12/2024 11:07 AM EDT Pt transferred, report given to EMS, pt ambulated to EMS stretcher with ease while utilizing his walker. Meds and belongings sent with pt. Left without incident. documented in this encounter Medications at Time [...] (one) time each day. 30 each 09/06/2024 lisinopril (PRINIVIL,ZESTRI L) 40 mg tablet Take [...] Disposition Code Departure Means Destination Comment s Psychiatric Hospital documented in this encounter Progress Notes * Nely Sellers RN - 09/12/2024 2:30 AM EDT Pt bp 176/110, provider made aware, medication given per order. See eMar. * Scarlett Crowley - 09/11/2024 3:58 PM EDT Patient accepted to [facility] by Dr Amaya for tomorrow 09/12/24; [place] [address] [place] [address] * Maye Perales RN - 09/11/2024 2:03 AM EDT After Ativan administration pt noted to be more lethargic than prior - pupils noted to be pinpoint as well, GCS = 8. Provider aware - 2 doses of narcan ordered and given without change. * Maye Perales RN - 09/11/2024 2:02 AM EDT Pt's belongings searched by security - home medications placed in security bag and into locked cabinet in blue pod. * Maye Perales RN - 09/10/2024 10:08 PM EDT PT CAME IN WITH A SECTION 12 FROM N * Maye Perales RN - 09/10/2024 8:55 PM EDT NURSING SWALLOW SCREEN Exclusing Criteria: (choose one) exclusion criteria: No Exclusion Criteria - Proceed to 3 oz water trial Please Note: Only proceed with screen if 'No exclusion criteria' is selected. If 'no risk factors' selected proceed with diet per order. This is for someone with No aspiration risk factor. Stroke pts ARE a risk factor. If any exclusion criteria selected (except for 'No Risk Foctors' or 'No Exclusion Criteria') order Swallowing Evaluation /FEES by Speech /Language Pathologist. Screen may be repeated if patient shows clinical improvement (Clinical improvement is defined as patient not showing signs of any exclusion criteria. Assessment (3 oz Water Swallow Challenge): Pass/Fail: Pass Perform Water Swallow Challenge and Document Pass/Fail Instructions for completing water swallow challenge >Sit patient upright 80-90 degrees > Patients with HOB elevated 30-80 degrees are eligible for aspiration screen >Ask patient to drink 3 oz water (90 ml) from cup or through straw in sequential swallows without stopping (cup or straw can be held by patient or staff) >Assess for coughing, choking, or cleonng throat during swallowing immediately after completion of drinking Pass: Able to drink 3 ounces of i-rater with sequential swallows without coughing, clearing throat,or change in vocal quality during and / or immediately after. Notify MD of results and obtain diet order Fail: Inability to perform sequential swallows Cough, clearing throat, or change in vocal quality during and/or immediately after drinking. Notify MD of results Keep NPO including medication. Order Swallov Evaluation / FEES by Speech / Language Pathologist. Maye Perales RN * Maye Perales RN - 09/10/2024 8:48 PM EDT PT ENDORSES SI AND NOW HI STATES HE MAYBE HAS A PLAN TO KILL SOMEONE - WILL NOT SAY WHO IT IS OR HOW HE WOULD DO IT. PROVIDER MARYJO ROGERS AWARE. PT MORE ALERT AT THIS TIME, REQUESTING SOMETHING TO DRINK * Maye Perales RN - 09/10/2024 6:58 PM EDT Pt informed this RN that he drank a lot of alcohol today and has current suicidal ideation with a plan to slit his wrists. States he drinks alcohol once a month and sometimes once every other month, denies drinking everyday. Denies opiate use, states he smoked marijuana today. After stating this, pt fell back asleep and is now noted to be snoring however maintaining airway and spO2 at 100% on 2L NC. * Maye Perales RN - 09/10/2024 4:02 PM EDT EMS REPORT: Pt coming from [address] [place] [address] - [facility] / [facility]. Told them he was feeling suicidal andwas going to slit his wrists - stated to EMS he smoked marijuana today. PT arousable however noted to be snoring at this time. Pt is homeless. * ZONIA Ribeiro - 09/10/2024 3:57 PM EDT Emergency Medicine Note Patient Name: Sal Solorzano Initial Evaluation: 09/10/2024 : 1985 Patient's PCP: Pcp Unknown Physician Emergency Physician: ZONIA Ribeiro History of Present Illness Chief Complaint: Chief Complaint Patient presents with Suicidal HPI: This is a 38-year-old male with past medical history as listed below who presents to the ED from [facility]. While he was there he stated he was suicidal with plans to slit his wrists. He was brought in via EMS. On arrival he is minimally responsive with snoring respirations and pinpointpupils. He was given Narcan with immediate effect. Upon awakening states he only smoked weed and drink alcohol. Denies opiates. 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 He remains excessively sleepy but arousable, maintaining respirations and oxygen saturation currently on 2 L nasal cannula. He also has an NPA in place at this time. ROS: I have performed a ROS with the pertinent positives and negatives documented in the history ofpresent illness. Previous History Past Medical History: Diagnosis Date Bipolar affective disorder ([facility] V24, [facility] V28) 09/15/2015 DX:Bipolar affective disorder ([facility]) Kevin's disease Essential hypertension 09/15/2015 DX:Essential hypertension [...] by mouth 2 (two) times a day. lurasidone (LATUDA) 80 mg tablet Take 1 tablet (80 mg total) by mouth 1 (one) time each day with breakfast. topiramate (TOPAMAX) 25 mg tablet Take 1 [...] tablet (40 mg total) by mouth daily. [] naproxen (NAPROSYN) 500 mg tablet Take 1 tablet (500 mg total) by mouth 2 (two) times a day with meals for 15 days. 30 tablet 0 Physical Exam ED Triage Vitals Temp Pulse Resp BP -- -- -- -- SpO2 Temp src Heart Rate Source Patient Position -- -- -- -- BP Location FiO2 (%) -- -- General: Well-appearing, sleepy, minimally arousable HEENT: PERRL, EOMI, external ears and nose appear unremarkable, airway is patent. Pinpoint pupils. Neck: Supple, full range of motion Chest: Clear to auscultation; no evidence of respiratory distress Circulatory: RRR, extremities well perfused Abdomen: Non-distended, Non-Tender Extremities: Normal ROM, No edema Skin: Warm and dry Neuro: Alert and oriented, no focal deficits Results Labs Reviewed COMPREHENSIVE METABOLIC PANEL - Abnormal Result Value Sodium 140 Potassium 3.5 Chloride 105 CO2 28 Anion Gap 7 Glucose 104 (*) BUN 13 Creatinine 0.85 eGFR 114 BUN/Creatinine Ratio 15.3 Calcium 9.2 AST (SGOT) 14 ALT (SGPT) 17 Alkaline Phosphatase 79 Total Protein 7.2 Albumin 3.7 Total Bilirubin 0.3 ETHANOL - Abnormal Ethanol Level 124 (*) ACETAMINOPHEN LEVEL - Abnormal Acetaminophen Level <2.0 (*) SALICYLATE LEVEL - Abnormal Salicylate Level <1.7 (*) DRUG ABUSE SCREEN 8A PANEL, URINE - Abnormal Amphetamine Screen, Ur Negative Barbiturate Screen, Ur Negative Benzodiazepine Screen, Ur Negative Cocaine Screen, Ur Negative Opiate Screen, Ur Negative Cannabinoid (THC) Screen, Ur Positive (*) Oxycodone Screen, Ur Negative Fentanyl, Ur Negative Narrative: Assay cutoffs: Amphetamines 1000 ng/mL Barbiturates 200 ng/mL Benzodiazepines 200 ng/mL Cocaine 300 ng/mL Fentanyl 1 ng/mL Opiates 300 ng/mL Oxycodone 100 ng/mL THC 50 ng/mL Semi-quantitative assay for screening purposes only. Unconfirmed screening result should not be used for non-medical purposes. *ALTERNATE METHOD CONFIRMATION DONE UPON REQUEST ONLY* CBC WITH AUTO DIFFERENTIAL - Abnormal WBC 6.5 RBC 4.40 (*) Hemoglobin 12.7 (*) Hematocrit 41.1 (*) MCV 93.0 MCH 28.7 MCHC 30.9 (*) RDW 14.4 Platelets 211 MPV 9.8 NRBC 0.0 NRBC Absolute 0.00 Neutrophils Relative 59.8 Lymphocytes Relative 22.2 Monocytes Relative 6.9 Eosinophils Relative 10.0 Basophils Relative 0.6 Immature Granulocytes Relative 0.5 Neutrophils Absolute 3.87 Lymphocytes Absolute 1.44 Monocytes Absolute 0.45 Eosinophils Absolute 0.65 (*) Basophils Absolute 0.04 Immature Granulocytes Absolute 0.03 BUPRENORPHINE SCREEN, URINE - Normal Buprenorphine Screen Urine Negative Narrative: Assay cutoff 5 ng/mL Semi-quantitative assay for screening purposes only. Unconfirmed screening result should not be used for non-medical purposes. *ALTERNATE METHOD CONFIRMATION DONE UPON REQUEST ONLY* PHENCYCLIDINE, URINE - Normal PCP Scrn, Ur Negative METHADONE SCREEN, URINE - Normal Methadone Screen, Urine Negative AMMONIA - Normal Ammonia 32 TROPONIN I HIGH SENSITIVITY - Normal High Sensitivity Troponin I 7 Narrative: High levels of biotin in samples may falsely decrease hsTroponin values. Use caution when interpreting hsTroponin results in patients taking biotin who exhibit renal impairment (eGFR <60) or in patients taking more than 20 mg/day of biotin. URINALYSIS WITH REFLEX MICROSCOPIC - Normal Specific [place] Urine 1.010 pH, Urine 6.5 Leukocytes, Urine Negative Nitrite, Urine Negative Protein, Urine Negative Glucose, Urine Negative Ketones, Urine Negative Urobilinogen, Urine 0.2 Bilirubin, Urine Negative Blood, Urine Negative CBC AND DIFFERENTIAL Narrative: The following orders were created for panel order CBC and differential. Procedure Abnormality Status --------- ------ CBC auto differential[[id number]] Abnormal Final result Please view results for these tests on the individual orders. URINALYSIS WITH REFLEX MICROSCOPIC Narrative: The following orders were created for panel order Urinalysis with reflex microscopic. Procedure Abnormality Status --------- ------ Urinalysis with reflex ...[[id number]] Normal Final result Please view results for these tests on the individual orders. Abnormal Labs Reviewed COMPREHENSIVE METABOLIC PANEL - Abnormal; Notable for the following components: Result Value Glucose 104 (*) All other components within normal limits ETHANOL - Abnormal; Notable for the following components: Ethanol Level 124 (*) All other components within normal limits ACETAMINOPHEN LEVEL - Abnormal; Notable for the following components: Acetaminophen Level <2.0 (*) All other components within normal limits SALICYLATE LEVEL - Abnormal; Notable for the following components: Salicylate Level <1.7 (*) All other components within normal limits DRUG ABUSE SCREEN 8A PANEL, URINE - Abnormal; Notable for the following components: Cannabinoid (THC) Screen, Ur Positive (*) All other components within normal limits Narrative: Assay cutoffs: Amphetamines 1000 ng/mL Barbiturates 200 ng/mL Benzodiazepines 200 ng/mL Cocaine 300 ng/mL Fentanyl 1 ng/mL Opiates 300 ng/mL Oxycodone 100 ng/mL THC 50 ng/mL Semi-quantitative assay for screening purposes only. Unconfirmed screening result should not be used for non-medical purposes. *ALTERNATE METHOD CONFIRMATION DONE UPON REQUEST ONLY* CBC WITH AUTO DIFFERENTIAL - Abnormal; Notable for the following components: RBC 4.40 (*) Hemoglobin 12.7 (*) Hematocrit 41.1 (*) MCHC 30.9 (*) Eosinophils Absolute 0.65 (*) All other components within normal limits XR Chest 2 Views Final Result No acute findings. -------- FINAL REPORT -------- Dictated By: Juan Tripp Dictated Date: 09/11/2024 08:25 ET Assigned Physician: Juan Tripp Reviewed and Electronically Signed By: Juan Tripp Signed Date: 09/11/2024 08:27 ET Workstation ID: [id number] Transcribed By: Self Edit Transcribed Date: 09/11/2024 08:[address] Abdomen Pelvis w Contrast Final Result No acute abnormality in the abdomen or pelvis. This document has been electronically signed by: Andres Alexandra MD on 09/10/2024 23:53:15 CT Head wo Contrast Final Result No acute intracranial abnormality. This document has been electronically signed by: Andres Alexandra MD on 09/10/2024 23:48:31 I have discussed the incidental/abnormal imaging and/or lab abnormalities with the patient and haveinstructed them the need for further evaluation and workup with their primary care doctor. I have provided the patient with a paper copy of the abnormality. The laboratory results, imaging results and other diagnostic exam results were reviewed in the EMR. Medical Decision Making Medications naloxone (NARCAN) injection 2 mg (2 mg nasal Given 09/10/24 1645) ondansetron (PF) (ZOFRAN) injection 4 mg (4 mg intravenous Given 09/10/24 2242) sodium chloride 0.9 % flush 10 mL (10 mL intravenous Given 09/10/24 2308) iopamidoL (ISOVUE-370) 370 mg iodine /mL (76 %) injection 100 mL (100 mL intravenous Given 09/10/24 2308) LORazepam (ATIVAN) tablet 1 mg (1 mg oral Given 09/10/24 2344) acetaminophen (TYLENOL) tablet 1,000 mg (1,000 mg oral Given 09/10/24 2345) LORazepam (ATIVAN) injection 1 mg (1 mg intravenous Given 09/11/24 0001) metoclopramide (REGLAN) injection 10 mg (10 mg intravenous Given 09/10/24 2357) naloxone (NARCAN) injection 0.4 mg (0.4 mg intravenous Given 09/11/24 0145) naloxone (NARCAN) injection 0.4 mg (0.4 mg intravenous Given 09/11/24 0156) naloxone (NARCAN) injection 1.2 mg (1.2 mg intravenous Given 09/11/24 0208) ED Course as of 09/14/24 1517 TueSeptember 10, 2024 1654 EKG shows sinus rhythm at 78 bpm without ischemic concerns. [JH] 1915 I received transfer of care and sign of this patient approximately 1900 hrs. pending medical clearance. 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 Brought in by EMS. Minimally responsive with snoring respirations and pinpoint pupils but responsive to Narcan. Note from previous provider indicates that patient had an NPA placed at 1 point, he does not currently have one in place. He is resting comfortably, saturating 100% on 2 L, maintaining respirations. Ethanol level 124, drug screen is pending. [EN] 1999 Interestingly enough, patient is found to be opiate negative, fentanyl negative. He is continuing to sleep peacefully, RN does report that patient was awake, alert, seemingly oriented and verbalizing a short while ago, continues to suicidal ideation. Given patient's body habitus it certainly possible that patient may have some component of sleep apnea which could explain his snoring respirations and desaturating. He is at 100% on 2 L, will wean him off and continue to reevaluate. [EN] 2232 Patient more alert once again, I personally evaluated him, seems to have some concern for continued disorientation. When asked to give his full name he paused for a prolonged period of time witha very confused look on his face and was able to produce the correct answer, however did tell me heis unaware of his date of . Does not know the month but is able to tell me that it is 2024. Able to tell me that he is in a hospital but does not know which or why he is here. He is now complaining of a headache and mid abdominal pain. No numbness or tingling, denies weakness in his extremities. When asked to elaborate he reports I just feel bad . He is not forthcoming with any additional in formation. He is saturating appropriately on room air, however his mental status has not fully returned to baseline, no other findings in his labs thus far to explain this. His alcohol level was 124 nearly 6 hours ago. Will obtain additional labs and CT imaging. Pupils are no longer pinpoint, appropriately reactive to light and even. [EN] TueSeptember 11, 2024 0013 Negative imaging, ammonia not elevated [EN] 0342 Patient did have a repeat episode of pinpoint pupils which is concerning given his negative drug screen for opiates, fentanyl and methadone. He is still maintaining his secretions and his respirations, saturating appropriately on room air, however is still quite lethargic given length of time in this facility. I did discuss this patient with Dr. Tripp, we collectively decided to administer an additional dose of Narcan and determine clinical picture. This did cause some pupillary response and he did become slightly less lethargic and more easily aroused although did not entirely awake. Iwas able to speak with him and he indicated a diagnosis for sleep apnea for which he is meant to use a CPAP machine but is limited in this due to his homelessness. He is transiently desaturating but this is when he lays flat and when he wakes he returns to appropriate saturation on room air. Will order CPAP to see if this continues to improve symptoms. [EN] 0934 Evaluated by micha. Patient will be Psych Bed Search [] ED Course User Index [EN] ZONIA Berg [] ZONIA Ribeiro [] Humberto Condon DO Clinical Impressions as of 09/14/24 1517 Suicidal ideation Differential to include polysubstance abuse, opiate overdose, suicidal ideation, depression, anxiety Patient being monitored. Vital signs currently stable post Narcan. Workup pending. Patient will need [facility] evaluation once medically cleared. Procedures Procedures Diagnosis 1. Suicidal ideation Disposition Transfer to Psychiatric Facility ED Prescriptions None Physician Attestation ZONIA Ribeiro 09/10/24 1654 ZONIA Ribeiro 09/14/24 1517 Cosigned by Tootie Luther DO at 09/14/2024 3:53 PM EDT documented in this encounter Consult Notes * Rhianna Willams - 09/11/2024 9:44 AM EDTAssociated Order(s): IP CONSULT TO LEAD TRAINER Images from the original note were not included. Behavioral Health Services - Crisis Assessment Important times Time of arrival: 4:01 p.m. (09/10/2024) Time of referral: 5:05 p.m. (09/10/2024) Time of readiness: 8:15 a.m. (09/11/2024) Time assessment started: 8:30 a.m. (09/11/2024) Time of disposition: 9:30 a.m. (09/11/2024) Location: [facility] Emergency Department Consulted case with: Kenzie Torrez LCSW Insurance information: Insurance: [employer] Verified by: [facility] [employer] [facility] via [employer] Reason for Consultation / Presenting Problem: Sal Solorzano is being seen today for a consultive service at the request of Humberto Condon DO to assess risk and identify appropriate level of care. Sal presented to ED from [facility] on [facility]. He reported SI with a plan to slit his wrists. During assessment Sal reports not doing well due to life, being disabled, and sleeping in streets . He states he was released from detention in November of 2023, and has been staying in the streets since then. He reports wanting to go back to detention as there was structure and security while he was there. He initially reports not having family or support in the area, but later states he has two friendshe met in the area after being released in November. Sal reports having a nephew in [place] that he would like to go live with. This is the nephew of his ex . However, the nephew has expressed concern with his moving because the nephew is currently in the army and could need to move spontaneously. Sal states he doesn't care if he ended up alone in [place] because he is alone here and what's the difference . He states in [place] he can get a gun that he has the right to use . History of Present Illness: Sal is a 38 y.o. male with Chief Complaint Patient presents with Suicidal Social/Educational History: Guardian - None Status: None State Agency Involvement: Not reported Patrick's Order: None reported Marital Status: None reported Alternative Placement Details: None Living Situation for patient: Homeless Friendships/Family/Social Peer Support/Relationships: Sal reports having two friends in the areathat he met post incarceration. 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 Strengths/Supports: Advocates for self Help seeking Support of two friends in the area Willing to engage in treatment Collaterals, contact information, and engagement level: Therapist: None current Psychiatrist: None current PCP: Nguyen Kohler, [facility] Family: Nephew (Unknown) Other: [facility]- Bruno- Not contacted [facility]- - Crisis workroom confirmed they have a bag of Sal's belongings at the [facility] office. Sal was updated, and encouraged to pick it up upon discharge from inpatienthospitalization. Mental Status Speech: WNL Eye Contact: Intermittent Motor Activity: WNL Mood: WNL with moments of agitation Affect: Flat Sleep: Sal reports his sleep is horrible because he can't breath , has racing thoughts, and is overall disturbed . Appetite: Sal reports he has not had a chance to sit and eat . Memory: WNL Attention / Concentration: WNL Behavior: Cooperative Appearance: Hallucinations: Sal reports he continuously hears commanding and demanding voices, that tell him to hurt himself and others. He reports VH of people , and feels like he is watching TV . He reports also seeing things blowup, the future, and the past . He states he has experienced AH and VH since a kid . Delusions: None Thought Content: WNL SI: Sal reports SI. When asked about a plan, he states I can show you better than I can tell you . He then reports continuing to endorse wanting to slit his wrists. He also reports drinking Vodka yesterday in attempt to kill himself. HI: Sal reports HI to choke, punch, grab nuts, and gauge others. Thought Process: WNL Orientation Impairment: None Insight: Poor Judgment: Poor Impulse Control: Poor Substance Use History (Including family history): Sal reports utilizing weed . He states he tried to kill himself by drinking vodka yesterday, however he usually don't care for alcohol . Utox Results: Utox positive for Marijuana and a Ethanol Level of 124. Substance Use Treatment History: None reported Mental Health Treatment History: Outpatient Mental Health Treatment: Sal reports having no current outpatient mental health providers. Previous or Current Psychological Diagnosis: Sal reports a diagnosis of Schizophrenia, Bipolar Disorder, and PTSD. Per previous [facility] assessment (08/14/2024) Sal is diagnosed withBipolar Disorder and PTSD. Prior Psychiatric Hospitalizations/Residential Treatment Facilities: Sal reports many prior inpatient psychiatric hospitalizations dating to back to when he was a child. He reports a recent hospitalization at [facility]. Other Comments Regarding Mental Health Treatment History: None Mental Health Concerns in Family: None reported Trauma History: None reported Medications: Scheduled Meds: ketorolac, 15 mg, intravenous, Once Continuous Infusions: PRN Meds: Sal reports being prescribed many medications, but is unsure of the specifics. He expressed frustration regarding medications as they are constantly changing with each inpatient psychiatric hospitalization. He states he is unsure if the medications are helpful since they change often, and he is unsure of where they are at the moment. He reports his medications where most helpful when he was incarcerated for eight years, because they were consistent. Risk Assessment: Self-Harm: Sal reports SI. When asked about a plan, he states I can show you better than I can tell you . He then reports continuing to endorse wanting to slit his wrists. He also reports drinking Vodka yesterday in attempt to kill himself. Suicidal Behavior: Sal reports SI. When asked about a plan, he states I can show you better than I can tell you . He then reports continuing to endorse wanting to slit his wrists. He also reports drinking Vodka yesterday in attempt to kill himself. Homicidal Behavior: Sal reports HI to choke, punch, grab nuts, and gauge others. Physical Assault: None Physical Aggression: None Property Damage: None Verbal Aggression: None Family history of suicide: None reported Protective Factors: Advocates for self Help seeking Support of two friends in the area Willing to engage in treatment Risk Factors: Homelessness Endorses SI and HI Experiencing AH and VH Lack of Outpatient Providers Suicide Risk: Based on patient's history and current presentation, their level of risk for intentional lethal harm is considered High. Interventions: Risk assessment. Active, supportive, and empathetic listening. Psychoeducation and motivational interviewing. Response to interventions: Sal was responsive to the interventions above. DSM-5TR Diagnosis: F31.2 Bipolar I Disorder, with psychotic features Plan: Patient would benefit from an involuntary inpatient psychiatric admission for safety and containment, mood stabilization, psychiatric medication evaluation, diagnostic clarification, an opportunity to engage in a therapeutic treatment through individual and group counseling to develop adaptive coping/symptoms management skills and assistance in accessing community resources at discharge. Recommendations were discussed with requesting provider. It was a pleasure to assist Sal Camerons here at [facility]. This report is written and finalized by: LISSETH Galeana Flight Simulator Teacher Under the Supervision of LISSETH Dubon, [facility] Behavioral Health Rest Room [facility] (Tel): [phone] / : [phone] Cosigned by Kenzie Torrez LCSW at 09/11/2024 11:24 AM EDT * Jarod Melchor - 09/10/2024 5:43 PM EDT An attempt was made to see the patient, however, he was not able to lift his head, open his eyes orengage. Behavioral health will follow up with the patient when he is appropriate to be seen. documented in this encounter Plan of Treatment Not on file documented as of this encounter Procedures Procedure Name Priority Date/Time Associated Diagnosis Comments ECG ANNOTATED 09/13/2024 CPAP NIV Routine 09/11/2024 3:35 AM EDT XR CHEST 2 VIEWS STAT 09/10/2024 11:[address] ABDOMEN PELVIS W CONTRAST STAT 09/10/2024 11:[address] HEAD WO CONTRAST STAT 09/10/2024 1 1:14 PM EDT URINALYSIS WITH REFLEX MICROSCOPIC STAT 09/10/2024 10:47 PM EDT URINALYSIS WITH REFLEX MICROSCOPIC STAT 09/10/2024 10:47 PM EDT TROPONIN I HIGH SENSITIVITY STAT 09/10/2024 10:41 PM EDT AMMONIA STAT 09/10/2024 10:41 PM EDT DRUG ABUSE SCREEN 8A PANEL, URINE STAT 09/10/2024 6:56 PM EDT BUPRENORPHINE SCREEN, URINE STAT 09/10/2024 6:56 PM EDT METHADONE SCREEN, URINE STAT 09/10/2024 6:56 PM EDT PHENCYCLIDINE, URINE STAT 09/10/2024 6:56 PM EDT CBC WITH AUTO DIFFERENTIAL STAT 09/10/2024 4:40 PM EDT CBC AND DIFFERENTIAL STAT 09/10/2024 4:40 PM EDT ETHANOL STAT 09/10/2024 4:40 PM EDT ACETAMINOPHEN LEVEL STAT 09/10/2024 4 :40 PM EDT SALICYLATE LEVEL STAT 09/10/2024 4:40 PM EDT COMPREHENSIVE METABOLIC PANEL STAT 09/10/2024 4:40 PM EDT ECG 12-LEAD STAT 09/10/2024 4:30 PM EDT documented in this encounter Results * ECG-Annotated (09/13/2024) us Provider Onbase MD ECG ORDERABLES Final Result * XR Chest 2 Views (09/10/2024 11:37 PM EDT) Anatomical Region Laterality Modality Body Radiographic Sylvia ging 09/11/2024 8:25 AM EDT Impressions 09/11/2024 8:27 AM EDT No acute findings. -------- FINAL REPORT -------- Dictated By: Juan Tripp Dictated Date: 09/11/2024 08:25 ET Assigned Physician: Juan Tripp Reviewed and Electronically Signed By: Juan Tripp Signed Date: 09/11/2024 08:27 ET Workstation ID: [id number] Transcribed By: Self Edit Transcribed Date: 09/11/2024 08:25 ET Narrative 09/11/2024 8:27 AM EDT PROCEDURE: PA and lateral radiographs of the chest. HISTORY: ams. COMPARISON: 08/26/2024. FINDINGS: Mild atelectasis at the right base. ??Lungs otherwise clear. ??An irregular foreign object projects over the medial right suprahilar region. ??No pleural effusion, pulmonary edema, or pneumothorax. ??Small right diaphragmatic eventration. ??Healed posttraumatic deformity of the right posterior 5th rib. Procedure Note Juan Tripp MD - 09/11/2024 PROCEDURE: PA and lateral radiographs of the chest. HISTORY: ams. COMPARISON: 08/26/2024. FINDINGS: Mild atelectasis at the right base. Lungs otherwise clear. An irregularforeign object projects over the medial right suprahilar region. Nopleural effusion, pulmonary edema, or pneumothorax. Small rightdiaphragmatic eventration. Healed posttraumatic deformity of the rightposterior 5th rib. IMPRESSION: No acute findings. -------- FINAL REPORT -------- Dictated By: Juan Tripp Dictated Date: 09/11/2024 08:25 ET Assigned Physician: Juan Tripp Reviewed and Electronically Signed By: Juan Tripp Signed Date: 09/11/2024 08:27 ET Workstation ID: [id number] Transcribed By: Self Edit Transcribed Date: 09/11/2024 08:25 ET Maryjo BRAR IMG XR PROCEDURES Final Result * CT Head wo Contrast (09/10/2024 11:14 PM EDT) Anatomical Region Laterality Modality Head and Neck Computed Tomogra phy 09/10/2024 11:4 8 PM EDT Impressions 09/10/2024 11:48 PM EDT No acute intracranial abnormality. This document has been electronically signed by: Andres Alexandra MD on 09/10/2024 23:48:31 Narrative 09/10/2024 11:48 PM EDT INDICATION: ams CT head without contrast Comparison: None Findings: There is streak artifact through a portion of the cerebellum and brainstem. There is no acute intracranial hemorrhage. Ventricles are of normal size and shape. No mass effect or midline shift is present. The fraser-white matter differentiation appears normal. The visualized portions of the orbits, paranasal sinuses, and mastoids are unremarkable. No fractures are identified. Procedure Note Andres Alexandra MD - 09/10/2024 INDICATION: ams CT head without contrast Comparison: None Findings: There is streak artifact through a portion of the cerebellum and brainstem. There is no acute intracranial hemorrhage. Ventricles are of normal size and shape. No mass effect or midline shift is present. The fraser-white matter differentiation appears normal. The visualized portions of the orbits, paranasal sinuses, and mastoidsare unremarkable. No fractures are identified. IMPRESSION: No acute intracranial abnormality. This document has been electronically signed by: Andres Alexandra MD on 09/10/2024 23:48:[address] PROCEDURES Final Result * CT Abdomen Pelvis w Contrast (09/10/2024 11:14 PM EDT) Anatomical Region Laterality Modality Body Computed Tomogra phy 09/10/2024 11:5 3 PM EDT Impressions 09/10/2024 11:53 PM EDT No acute abnormality in the abdomen or pelvis. This document has been electronically signed by: Andres Alexandra MD on 09/10/2024 23:53:15 Narrative 09/10/2024 11:53 PM EDT INDICATION: Epigastric pain CT abdomen and pelvis with contrast Comparison: None Findings: There is minimal bibasilar atelectasis. Study is mildly limited by streak artifact from the patient's arms at his side. The liver, gallbladder, pancreas, spleen, and adrenal glands are unremarkable. There are few small bilateral renal cysts. Kidneys are otherwise unremarkable. The appendix is normal. The remainder of the gastrointestinal tract is unremarkable. There is no free fluid or free air. There are no enlarged lymph nodes. The aorta is normal in diameter. The bladder is unremarkable. There is no acute fracture or suspicious lytic or sclerotic lesion. There are bilateral hip screws. Procedure Note Andres Alexandra MD - 09/10/2024 INDICATION: Epigastric pain CT abdomen and pelvis with contrast Comparison: None Findings: There is minimal bibasilar atelectasis. Study is mildly limited by streak artifact from the patient's arms athis side. The liver, gallbladder, pancreas, spleen, and adrenal glands are unremarkable. There are few small bilateral renal cysts. Kidneys are otherwise unremarkable. The appendix is normal. The remainder of the gastrointestinal tract is unremarkable. There is no free fluid or free air. There are no enlarged lymph nodes. The aorta is normal in diameter. The bladder isunremarkable. There is no acute fracture or suspicious lytic or sclerotic lesion.There are bilateral hip screws. IMPRESSION: No acute abnormality in the abdomen or pelvis. This document has been electronically signed by: Andres Alexandra MD on 09/10/2024 23:53:15 Maryjo BRAR [facility] CT PROCEDURES Final Result * Urinalysis with reflex microscopic (09/10/2024 10:47 PM EDT) Specific [place] Urine 1.010 1.003 - 1.030 LAB URINALYSIS - AUTOMATED METHOD 09/10/2024 11:12 PM [facility] pH, Urine 6.5 5.0 - 8.0 pH LAB URINALYSIS - AUTOMATED METHOD 09/10/2024 11:12 PM [facility] Leukocytes, Urine Negative Negative LAB URINALYSIS - AUTOMATED METHOD 09/10/2024 11:12 PM [facility] Nitrite, Urine Negative Negative LAB URINALYSIS - AUTOMATED METHOD 09/10/2024 11:12 PM [facility] Protein, Urine Negative <=Trace mg/dL LAB URINALYSIS - AUTOMATED METHOD 09/10/2024 11:12 PM [facility] Glucose, Urine Negative Negative mg/dL LAB URINALYSIS - AUTOMATED METHOD 09/10/2024 11:12 PM [facility] Ketones, Urine Negative Negative mg/dL LAB URINALYSIS - AUTOMATED METHOD 09/10/2024 11:12 PM [facility] Urobilinogen, Urine 0.2 0.2 - 1.0 mg/dL LAB URINALYSIS - AUTOMATED METHOD 09/10/2024 11:12 PM EDT [facility] Bilirubin, Urine Negative Negative LAB URINALYSIS - AUTOMATED METHOD 09/10/2024 11:12 PM EDT [facility] Blood, Urine Negative Negative LAB URINALYSIS - AUTOMATED METHOD 09/10/2024 11:12 PM EDT [facility] Urine Urine specimen obtained by clean catch procedure / Unknown Non-blood Collection / Unknown 09/10/2024 10:47 PM EDT 09/10/2024 11:06 PM EDT us Maryjo BRAR LAB URINE ORDERABLES Final Resul t Performing Organization Address [facility]/ZIP Co de Phone Number [facility] [address] [place] [address], [place] [phone] * Troponin I high sensitivity (NOW and then in 1 hour) (09/10/2024 10:41 PM EDT) [facility] High Sensitivity Troponin I 7 <=79 ng/L LAB CHEMISTRY METHOD 09/10/2024 11:31 PM EDT [facility] Blood Venous blood specimen / Unknown Venipuncture / Unknown 09/10/2024 10:41 PM EDT 09/10/2024 11:07 PM EDT Narrative [facility] - 09/10/2024 11:31 PM EDT High levels of biotin in samples may falsely decrease hsTroponin values. ??Use caution when interpreting hsTroponin results in patients taking biotin who exhibit renal impairment (eGFR <60) or in patients taking more than 20 mg/day of biotin. us Maryjo BRAR LAB BLOOD ORDERABLES Final Resul t Performing Organization Address [facility]/ZIP Co de Phone Number [facility] [address] [place] [address], [place] [phone] * Ammonia (09/10/2024 10:41 PM EDT) [facility] Ammonia 32 11 - 35 mcmol/L LAB CHEMISTRY METHOD 09/10/2024 11:26 PM EDT [facility] Blood Venous blood specimen / Unknown Venipuncture / Unknown 09/10/2024 10:41 PM EDT 09/10/2024 11:06 PM EDT Maryjo BRAR LAB BLOOD ORDERABLES Final Resul t Performing Organization Address [facility]/ZIP Co de Phone Number [facility] [address] [place] [address], [place] [phone] * Methadone, urine (09/10/2024 6:56 PM EDT) [facility] Methadone Screen, Urine Negative Negative LAB CHEMISTRY METHOD 09/10/2024 7:44 PM EDT [facility] Comment: Assay cutoff 300 ng/mL Semi-quantitative assay for screening purposes only. Unconfirmed screening result should not be used for non-medical purposes. *ALTERNATE METHOD CONFIRMATION DONE UPON REQUEST ONLY* Urine Urine specimen obtained by clean catch procedure / Unknown Non-blood Collection / Unknown 09/10/2024 6:56 PM EDT 09/10/2024 7:12 PM EDT Gustavo Crespo MD LAB URINE ORDERABLES Medina l Result Performing Organization Address City/[facility]/ZIP Co de Phone Number [facility] [address] [place] [address], [place] [phone] * Phencyclidine, urine (09/10/2024 6:56 PM EDT) [facility] PCP Scrn, Ur Negative Negative LAB CHEMISTRY METHOD 09/10/2024 7:44 PM EDT [facility] Comment: Assay cutoff 25 ng/mL Semi-quantitative assay for screening purposes only. Unconfirmed screening result should not be used for non-medical purposes. *ALTERNATE METHOD CONFIRMATION DONE UPON REQUEST ONLY* Urine Urine specimen obtained by clean catch procedure / Unknown Non-blood Collection / Unknown 09/10/2024 6:56 PM EDT 09/10/2024 7:12 PM EDT Gustavo Crespo MD LAB URINE ORDERABLES Medina l Result Performing Organization Address [facility]/ZIP Co de Phone Number [facility] [address] [place] [address], * Buprenorphine screen, urine (09/10/2024 6:56 PM EDT) Buprenorphine Screen Urine Negative Negative LAB CHEMISTRY METHOD 09/10/2024 7:44 PM EDT [facility] Urine Urine specimen obtained by clean catch procedure / Unknown Non-blood Collection / Unknown 09/10/2024 6:56 PM EDT 09/10/2024 7:12 PM EDT Narrative [facility] - 09/10/2024 7:44 PM EDT Assay cutoff 5 ng/mL Semi-quantitative assay for screening purposes only. Unconfirmed screening result should not be used for non-medical purposes. *ALTERNATE METHOD CONFIRMATION DONE UPON REQUEST ONLY* Gustavo Crespo MD LAB URINE ORDERABLES Medina l Result Performing Organization Address [facility]/ZIP Co de Phone Number [facility] [address] [place] [address], * (ABNORMAL) Drug abuse screen 8a panel, urine (09/10/2024 6:56 PM EDT) Amphetamine Screen, Ur Negative Negative LAB CHEMISTRY METHOD 7:44 PM EDT [facility] Comment:Certain OTC medicati ons containing ephedrine, phenylephrine, pseudoephedrine and phenylpropanolamine can cause false positive results. Barbiturate Screen, Ur Negative Negative LAB CHEMISTRY METHOD 7:44 PM EDT [facility] Benzodiazepine Screen, Ur Negative Negative LAB CHEMISTRY METHOD 5 7:44 PM EDT [facility] Cocaine Screen, Ur Negative Negative LAB CHEMISTRY METHOD 5 7:44 PM EDT [facility] Opiate Screen, Ur Negative Negative LAB CHEMISTRY METHOD 5 7:44 PM EDT [facility] Cannabinoid (THC) Screen, Ur Positive(A ) Negative LAB CHEMISTRY METHOD 5 7:44 PM EDT [facility] Comment:Specimens from patie nts taking pantoprazole sodium (Protonix) have been shown to produce false positive results. Oxycodone Screen, Ur Negative Negative LAB CHEMISTRY METHOD 5 7:44 PM EDT [facility] Fentanyl, Ur Negative Negative LAB CHEMISTRY METHOD 5 7:44 PM T [facility] Urine Urine specimen obtained by clean catch procedure / Unknown Non-blood Collection / Unknown 09/10/2024 6:56 PM EDT 09/10/2024 7:12 PM EDT Narrative [facility] - 09/10/2024 7:44 PM EDT Assay cutoffs: Amphetamines ? 1000 ng/mL Barbiturates ?200 ng/mL Benzodiazepines ?? 200 ng/mL Cocaine ? 300 ng/mL Fentanyl ?1 ng/mL Opiates ? 300 ng/mL Oxycodone ? 100 ng/mL THC ?50 ng/mL Semi-quantitative assay for screening purposes only. Unconfirmed screening result should not be used for non-medical purposes. *ALTERNATE METHOD CONFIRMATION DONE UPON REQUEST ONLY* us Gustavo Crespo MD LAB URINE ORDERABLES Medina zambrano Result [facility] [address] [place] [address], * (ABNORMAL) CBC auto differential (09/10/2024 4:40 PM EDT) [facility] WBC 6.5 4.8 - 10.8 K/mcL LAB [facility]24 [facility] RBC 4.40(L) 4.50 - 5.50 M/mcL [facility]2024 [facility] Hemoglobin 12.7(L) 13.5 - 17.5 g/dL LAB HEMETOLOGY METHOD 09/10/2024 5:02 PM [facility] Hematocrit 41.1(L) 42.0 - 54.0 % LAB HEMETOLOGY METHOD 09/10/2024 5:02 PM [facility] MCV 93.0 79.0 - 98.0 FL LAB [facility]OLOGY METHOD [facility]/10/2024 5:[facility] MCH 28.7 27.0 - 32.0 pcg LAB HEMETOLOGY METHOD 09/10/2024 5:02 PM [facility] MCHC 30.9(L) 32.0 - 37.0 g/dL LAB HEMETOLOGY METHOD 09/10/2024 5:02 PM [facility] RDW 14.4 11.0 - 15.0 % LAB HEMETOLOGY METHOD 09/10/2024 5:02 PM [facility] Platelets 211 130 - 400 K/mcL LAB HEMETOLOGY METHOD 09/10/2024 5:02 PM [facility] MPV 9.8 7.0 - 11.0 FL LAB HEMETOLOGY METHOD 09/10/2024 5:02 PM [facility] NRBC 0.0 <1.0 % LAB HEMETOLOGY METHOD 09/10/2024 5:02 PM [facility] NRBC Absolute 0.00 <0.10 K/mcL LAB HEMETOLOGY METHOD 09/10/2024 5:02 PM [facility] Neutrophils Relative 59.8 % LAB HEMETOLOGY METHOD 09/10/2024 5:02 PM [facility] Lymphocytes Relative 22.2 % LAB HEMETOLOGY METHOD 09/10/2024 5:02 PM [facility] Monocytes Relative 6.9 % LAB HEMETOLOGY METHOD 09/10/2024 5:02 PM [facility] Eosinophils Relative 10.0 % LAB HEMETOLOGY METHOD 09/10/2024 5:02 PM [facility] Basophils Relative 0.6 % LAB HEMETOLOGY METHOD 09/10/2024 5:02 PM [facility] Immature Granulocytes Relative 0.5 % LAB HEMETOLOGY METHOD 09/10/2024 5:02 PM [facility] Neutrophils Absolute 3.87 1.50 - 7.00 K/mcL LAB HEMETOLOGY METHOD 09/10/2024 5:02 PM [facility] Lymphocytes Absolute 1.44 1.00 - 5.00 K/mcL LAB HEMETOLOGY METHOD 09/10/2024 5:02 PM [facility] Monocytes Absolute 0.45 0.20 - 1.00 K/mcL LAB HEMETOLOGY METHOD 09/10/2024 5:02 PM [facility] Eosinophils Absolute 0.65(H) 0.00 - 0.50 K/mcL LAB HEMETOLOGY METHOD 09/10/2024 5:02 PM [facility] Basophils Absolute 0.04 0.00 - 0.20 K/mcL LAB HEMETOLOGY METHOD 09/10/2024 5:02 PM [facility] Immature Granulocytes Absolute 0.03 0.00 - 0.03 K/mcL LAB HEMETOLOGY METHOD 09/10/2024 5:02 PM EDT [facility] Blood Venous blood specimen / Unknown Venipuncture / Unknown 09/10/2024 4:40 PM EDT 09/10/2024 4:53 PM EDT us Gustavo Crespo MD LAB BLOOD ORDERABLES Medina l Result Performing Organization Address [facility] Co de Phone Number [facility] [address] [place] [address], [place] [phone] * (ABNORMAL) Salicylate level (09/10/2024 4:40 PM EDT) Salicylate Level <1.7(L) 2.0 - 29.0 mg/dL LAB CHEMISTRY METHOD 09/10/2024 5:23 PM EDT [facility] Blood Venous blood specimen / Unknown Venipuncture / Unknown 09/10/2024 4:40 PM EDT 09/10/2024 4:53 PM EDT us Gustavo Crespo MD LAB BLOOD ORDERABLES Medina l Result Performing Organization Address [facility] de Phone Number [facility] [address] [place] [address], [place] [phone] * (ABNORMAL) Acetaminophen level (09/10/2024 4:40 PM EDT) Acetaminophen Level <2.0(L) 10.0 - 30.0 mcg/mL LAB CHEMISTRY METHOD 09/10/2024 5:23 PM EDT [facility] Blood Venous blood specimen / Unknown Venipuncture / Unknown 09/10/2024 4:40 PM EDT 09/10/2024 4:53 PM EDT us Gustavo Crespo MD LAB BLOOD ORDERABLES Medina l Result Performing Organization Address [facility]/ZIP Co de Phone Number [facility] [address] [place] [address], [place] [phone] * (ABNORMAL) Ethanol (09/10/2024 4:40 PM EDT) Ethanol Level 124(H) 0 - 10 mg/dL LAB CHEMISTRY METHOD 09/10/2024 5:23 PM EDT [facility] Blood Venous blood specimen / Unknown Venipuncture / Unknown 09/10/2024 4:40 PM EDT 09/10/2024 4:53 PM EDT Gustavo Crespo MD LAB BLOOD ORDERABLES Medina l Result Performing Organization Address [facility]/ZIP Co de Phone Number [facility] [address] [place] [address], [place] [phone] * (ABNORMAL) Comprehensive metabolic panel (09/10/2024 4:40 PM EDT) Pathologist [facility] Sodium 140 133 - 145 mmol/L LAB CHEMISTRY METHOD 09/10/2024 5:33 PM EDT [facility] Potassium 3.5 3.5 - 5.5 mmol/L LAB CHEMISTRY METHOD 09/10/2024 5:33 PM [facility] Chloride 105 96 - 110 mmol/L LAB CHEMISTRY METHOD 09/10/2024 5:33 PM [facility] CO2 28 21 - 32 mmol/L LAB CHEMISTRY METHOD 09/10/2024 5:33 PM [facility] Anion Gap 7 3 - 11 LAB CHEMISTRY METHOD 09/10/2024 5:33 PM [facility] Glucose 104(H) 70 - 100 mg/dL LAB CHEMISTRY METHOD 09/10/2024 5:33 PM [facility] BUN 13 5 - 25 mg/dL LAB CHEMISTRY METHOD 09/10/2024 5:33 PM [facility] Creatinine 0.85 0.70 - 1.30 mg/dL LAB CHEMISTRY METHOD 09/10/2024 5:33 PM [facility] eGFR 114 >=60 mL/min/1. 73m2 LAB CHEMISTRY METHOD 09/10/2024 5:33 PM [facility] Comment:Calculation based on the??Chronic Kidney Disease Epidemiology Collaboration (CKD-EPI) equation refit??without adjustment for race. BUN/Creatinine Ratio 15.3 LAB CHEMISTRY METHOD 09/10/2024 5:33 PM [facility] Calcium 9.2 8.5 - 10.5 mg/dL LAB CHEMISTRY METHOD 09/10/2024 5:33 PM [facility] AST (SGOT) 14 10 - 42 unit/L LAB CHEMISTRY METHOD 09/10/2024 5:33 PM [facility] ALT (SGPT) 17 10 - 60 unit/L LAB CHEMISTRY METHOD 09/10/2024 5:33 PM [facility] Alkaline Phosphatase 79 42 - 121 unit/L LAB CHEMISTRY METHOD 09/10/2024 5:33 PM [facility] Total Protein 7.2 6.0 - 8.0 g/dL LAB CHEMISTRY METHOD 09/10/2024 5:33 PM [facility] Albumin 3.7 3.2 - 5.0 g/dL LAB CHEMISTRY METHOD 09/10/2024 5:33 PM [facility] Total Bilirubin 0.3 0.0 - 1.4 mg/dL LAB CHEMISTRY METHOD 09/10/2024 5:33 PM [facility] Blood Venous blood specimen / Unknown Venipuncture / Unknown 09/10/2024 4:40 PM EDT 09/10/2024 4:53 PM EDT us Gustavo Crespo MD LAB BLOOD ORDERABLES Medina l Result [facility] [address] [place] [address], [place] [phone] * ECG 12 lead (09/10/2024 4:30 PM EDT) Ventricular Rate ECG 78 BPM GEMUSE Atrial Rate 78 BPM GEMUSE P-R Interval 172 ms GEMUSE QRS Duration 92 ms GEMUSE Q-T Interval 412 ms GEMUSE QTc 469 ms GEMUSE P Wave [place] 68 degrees GEMUSE R [place] 28 degrees GEMUSE T [place] 15 degrees GEMUSE ECG Interpretation Normal sinus rhythm with sinus arrhythmia ST elevation, consider early repolarization , pericarditis, or injury Abnormal ECG When compared with ECG of 03-SEP-2024 22:21, ST elevation now present in Lateral leads Confirmed by MD Eric, Migue ([id number]) on 09/11/2024 7:58:49 AM GEMUSE 09/10/2024 4:30 PM EDT 09/11/2024 7:58 AM EDT us Gustavo Crespo MD ECG ORDERABLES Final Res ult Performing Organization Address [facility] Co de Phone Number TRUDY documented in this encounter Visit Diagnoses Diagnosis Suicidal ideation- Primary documented in this encounter Administered Medications Inactive Administered Medications - up to 3 most recent administrations Medication Order MAR Action Action Date Dose Rate Site acetaminophen (TYLENOL) tablet 1,000 mg 1,000 mg, oral, Once, On Tue09/10/24 at 2338, For 1 dose Given 09/10/2024 11:45 PM EDT 1,000 mg benztropine (COGENTIN) tablet 1 mg 1 mg, oral, Every 6 hours, First dose (after last modification) on Tue09/12/24 at 0217 Given 09/12/2024 2:22 AM EDT 1 mg cloNIDine (CATAPRES) tablet 0.1 mg 0.1 mg, oral, 2 times daily, First dose (after last modification) on Tue09/12/24 at 0217 Given 09/12/2024 8:51 AM EDT 0.1 mg Given 09/12/2024 2:22 AM EDT 0.1 mg gabapentin (NEURONTIN) capsule 300 mg 300 mg, oral, 3 times daily, First dose (after last modification) on Tue09/12/24 at 0217 Given 09/12/2024 8:51 AM EDT 300 mg Given 09/12/2024 2:23 AM EDT 300 mg hydrOXYzine HCL (ATARAX) tablet 25 mg 25 mg, oral, 3 times daily, First dose (after last modification) on Tue09/12/24 at 021 Given 09/12/2024 8:51 AM EDT 25 mg Given 09/12/2024 2:24 AM EDT 25 mg iopamidoL (ISOVUE-370) 370 mg iodine /mL (76 %) injection 100 mL 100 mL, intravenous, Once in imaging, Starting on Tue09/10/24 at 2257, For 1 dose Given 09/10/2024 11:08 PM E DT 100 mL lisinopriL (PRINIVIL,ZESTRIL) tablet 40 mg 40 mg, oral, Daily, First dose (after last modification) on Tue09/12/24 at 216 Given 09/12/2024 2:23 AM EDT 40 mg LORazepam (ATIVAN) injection 1 mg 1 mg, intravenous, Once, On Tue09/10/24 at 2350, For 1 dose, Prior to IV use, lorazepam injection should be DILUTED with an equal volume of compatible solution; Rate of administration should NOT exceed 2 mg/min. Given 09/11/2024 12:01 AM EDT 1 mg LORazepam (ATIVAN) tablet 1 mg 1 mg, oral, Once, On Tue09/10/24 at 2338, For 1 dose Given 09/10/2024 11:44 PM EDT 1 mg lurasidone (LATUDA) tablet 80 mg 80 mg, oral, Daily with breakfast, First dose (after last modification) on Tue09/12/24 at 021 Given 09/12/2024 2:25 AM EDT 80 mg metoclopramide (REGLAN) injection 10 mg 10 mg, intravenous, Once, On Tue09/10/24 at 2350, For 1 dose, Doses LESS than or equal to 10 mg can be given IV push undiluted over 1 minute Given 09/10/2024 11:57 PM EDT 10 mg naloxone (NARCAN) injection 0.4 mg 0.4 mg, intravenous, Once, On Tue09/11/24 at 0143, For 1 dose Given 09/11/2024 1:45 AM EDT 0.4 mg naloxone (NARCAN) injection 0.4 mg 0.4 mg, intravenous, Once, On Tue09/11/24 at 0153, For 1 dose Given 09/11/2024 1:56 AM EDT 0.4 mg naloxone (NARCAN) injection 1.2 mg 1.2 mg, intravenous, Once, On Tue09/11/24 at 0204, For 1 dose Given 09/11/2024 2:08 AM EDT 1.2 mg naloxone (NARCAN) injection 2 mg 2 mg, nasal, Once, On Tue09/10/24 at 1630, For 1 dose Given 09/10/2024 4:45 PM EDT 2 mg naproxen (NAPROSYN) tablet 500 mg 500 mg, oral, 2 times daily with meals, First dose on Tue09/11/24 at 1700 Given 09/12/2024 8:51 AM EDT 500 mg ondansetron (PF) (ZOFRAN) injection 4 mg 4 mg, intravenous, Once, On Tue09/10/24 at 2232, For 1 dose Given 09/10/2024 10:42 PM EDT 4 mg sodium chloride 0.9 % flush 10 mL 10 mL, intravenous, Once, On Tue09/10/24 at 2258, For 1 dose Given 09/10/2024 11:08 PM EDT 10 mL topiramate (TOPAMAX) tablet 25 mg 25 mg, oral, 2 times daily, First dose on Tue09/11/24 at 1105, HAZARDOUS Drug Precautions - Low Risk (Category A/NIOSH Group 3) Reproductive Risk Only: - Do NOT split, crush, or open dosage units - Single pair of ASTM standard D6978 certified chemotherapy gloves - Eye protection (goggles or face shield) required only with a potential for facial contact (i.e. concern for spitting or vomiting of the dose during or after administration) Given 09/12/2024 8:51 AM EDT 25 mg documented in this encounter Historical Medications * This list may reflect changes made after this encounter. topiramate (TOPAMAX) 25 mg tablet Take 1 tablet (25 mg total) by mouth 2 (two) times a day. 08/27/2024 lisinopril (PRINIVIL,ZESTRIL ) 40 mg tablet Take 1 tablet (40 mg total) by mouth daily. 01/20/2024 benztropine (COGENTIN) 1 mg tablet Take 1 tablet (1 mg total) by mouth every 6 (six) hours. 08/27/2024 lurasidone (LATUDA) 80 mg tablet Take 1 tablet (80 mg total) by mouth 1 (one) time each day with breakfast. 08/27/2024 hydrOXYzine HCL (ATARAX) 25 mg tablet Take 1 tablet (25 mg total) by mouth 3 times daily as needed. 05/31/2024 cloNIDine (CATAPRES) 0.1 mg tablet Take 1 tablet (0.1 mg total) by mouth 2 (two) times a day. 01/20/2024 added in this encounter Active and Recently Administered Medications Times are shown in EDT. Scheduled Medication Order 09/10/2024 09/11/2024 09/12/2024 acetaminophen (TYLENOL) tablet 1,000 mg (COMPLETED) 1,000 mg, oral, Once, On Tue09/10/24 at 2338, For 1 dose 2345 (Given - Provider: Maye Perales RN) benztropine (COGENTIN) tablet 1 mg 1 mg, oral, Every 6 hours, First dose (after last modification) on Tue09/12/24 at 0217 0222 (Given - Provider: Nely Sellers RN)0626 (Not Given - Provider: Nino Weaver RN - Reason: Other - Comment: admin too early) cloNIDine (CATAPRES) tablet 0.1 mg 0.1 mg, oral, 2 times daily, First dose (after last modification) on Tue09/12/24 at 0217 0222 (Given - Provider: Nely Sellers RN)0851 (Given - Provider: Nino Weaver, AMADO) gabapentin (NEURONTIN) capsule 300 mg 300 mg, oral, 3 times daily, First dose (after last modification) on Tue09/12/24 at 0217 0223 (Given - Provider: Nely Sellers RN)0851 (Given - Provider: Nino Weaver RN) hydrOXYzine HCL (ATARAX) tablet 25 mg 25 mg, oral, 3 times daily, First dose (after last modification) on Tue09/12/24 at 0217 0224 (Given - Provider: Nely Sellers RN)0851 (Given - Provider: Nino Weaver, AMADO) iopamidoL (ISOVUE-370) 370 mg iodine /mL (76 %) injection 100 mL (COMPLETED) 100 mL, intravenous, Once in imaging, Starting on Tue09/10/24 at 2257, For 1 dose 2308 (Given - Provider: Debby Willis) ketorolac (TORADOL) injection 15 mg 15 mg, intravenous, Once, On Tue09/10/24 at 2350, For 1 dose 0115 (Hold - Provider: Maye Perales RN - Reason: Other - Comment: PER PROVIDER PT SOMNOLENT AT THIS TIME) lisinopriL (PRINIVIL,ZESTRIL) tablet 40 mg 40 mg, oral, Daily, First dose (after last modification) on Tue09/12/24 at 0217 0223 (Given - Provider: Nely Sellers RN) LORazepam (ATIVAN) injection 1 mg (COMPLETED) 1 mg, intravenous, Once, On Tue09/10/24 at 2350, For 1 dose, Prior to IV use, lorazepam injection should be DILUTED with an equal volume of compatible solution; Rate of administration should NOT exceed 2 mg/min. 0001 (Given - Provider: Maye Perales RN) LORazepam (ATIVAN) tablet 1 mg (COMPLETED) 1 mg, oral, Once, On Tue09/10/24 at 2338, For 1 dose 2344 (Given - Provider: Maye Perales RN) lurasidone (LATUDA) tablet 80 mg 80 mg, oral, Daily with breakfast, First dose (after last modification) on Tue09/12/24 at 0217 0225 (Given - Provider: Nely Sellers RN) metoclopramide (REGLAN) injection 10 mg (COMPLETED) 10 mg, intravenous, Once, On Tue09/10/24 at 2350, For 1 dose, Doses LESS than or equal to 10 mg can be given IV push undiluted over 1 minute 2357 (Given - Provider: Maye Perales RN) naloxone (NARCAN) injection 0.4 mg (COMPLETED) 0.4 mg, intravenous, Once, On Tue09/11/24 at 0143, For 1 dose 0145 (Given - Provider: Maye Perales RN) naloxone (NARCAN) injection 0.4 mg (COMPLETED) 0.4 mg, intravenous, Once, On Tue09/11/24 at 0153, For 1 dose 0156 (Given - Provider: Maye Perales RN) naloxone (NARCAN) injection 1.2 mg (COMPLETED) 1.2 mg, intravenous, Once, On Tue09/11/24 at 0204, For 1 dose 0208 (Given - Provider: Maye Perales RN) naloxone (NARCAN) injection 2 mg (COMPLETED) 2 mg, nasal, Once, On Tue09/10/24 at 1630, For 1 dose 1645 (Given - Provider: Maye Perales RN) naproxen (NAPROSYN) tablet 500 mg 500 mg, oral, 2 times daily with meals, First dose on Tue09/11/24 at 1700 1204 (Held by provider - Provider: Humberto Condon DO - Reason: Other)1700 (Dose Auto Held - Provider: Humberto Condon DO) 0216 (Unheld by provider - Provider: Kevyn Tripp MD)0851 (Given - Provider: Nino Weaver RN) ondansetron (PF) (ZOFRAN) injection 4 mg (COMPLETED) 4 mg, intravenous, Once, On Tue09/10/24 at 2232, For 1 dose 2242 (Given - Provider: Maye Perales RN) sodium chloride 0.9 % flush 10 mL (COMPLETED) 10 mL, intravenous, Once, On Tue09/10/24 at 2258, For 1 dose 2308 (Given - Provider: Debby Willis) topiramate (TOPAMAX) tablet 25 mg 25 mg, oral, 2 times daily, First dose on Tue09/11/24 at 1105, HAZARDOUS Drug Precautions - Low Risk (Category A/NIOSH Group 3) Reproductive Risk Only: - Do NOT split, crush, or open dosage units - Single pair of ASTM standard D6978 certified chemotherapy gloves - Eye protection (goggles or face shield) required only with a potential for facial contact (i.e. concern for spitting or vomiting of the dose during or after administration) 1204 (Held by provider - Provider: Humberto Condon DO - Reason: Other)2100 (Dose Auto Held - Provider: Humberto Condon DO) 0216 (Unheld by provider - Provider: Kevyn Tripp MD)0721 (Not Given - Provider: Nino Weaver, RN - Reason: See Provider Order)0851 (Given - Provider: Nino Weaver RN) PRN Medication Order 09/10/2024 09/11/2024 09/12/2024 acetaminophen (TYLENOL) tablet 1,000 mg 1,000 mg, oral, Every 6 hours PRN, mild pain, Starting on Tue09/11/24 at 1103 documented in this encounter Orders Medications Ordered That Octavio ht Not Have Been Administered Count Last Ordered Date First Ordered Date acetaminophen (TYLENOL) tablet 1,000 mg 1 0 09/11/2024 benztropine (COGENTIN) tablet 1 mg 1 2024 cloNIDine (CATAPRES) tablet 0.1 mg 1 2024 gabapentin (NEURONTIN) capsule 300 mg 1 10/2024 hydrOXYzine HCL (ATARAX) tablet 25 mg 1 10/2024 lisinopriL (PRINIVIL,ZESTRIL) tablet 40 mg 1 09/11/2024 lurasidone (LATUDA) tablet 80 mg 1 09/12/19 ketorolac (TORADOL) injection 15 mg 1 09/10 Consult Count Last Ordered Date First Orde red Date IP CONSULT TO LEAD TRAINER 2 09/10/2024 Respiratory Care Count Last Ordered Date First Ordered Date CPAP NIV 1 09/11/2024 documented in this encounter Care Teams Tube And Rod Straightener Relationship Specialty Start Date End Date Physician, Pcp Unknown PCP - General 09/10/24 documented as of this encounter
--- OUTSIDE RECORDS SUMMARY | 2024-09-17 14:49 | XMS_ITS | Encounter Summary ---
Author Organization [facility] Address [address] [place] [address] Care Team Providers Care Programmer Or Analyst Name Role Phone Nguyen Kohler DO Primary Care Provider [phone] Reason for Visit * Reason Comments Emergency Room Follow Up Encounter Details Date Type Department Care Team ([facility] st Contact Info) Description 09/12/2024 Patient Outreach [facility]-Internal Medicine [address] [place] [address] Nguyen Kohler DO [address] [place] [address] Social History Tobacco Use Types Packs/Day Years [...] encounter Progress Notes * Moon Chaudhry - 09/17/2024 7:39 AM EDT Patient discharged from [facility] on 09/14/24 Discharge Disposition: Home or Self Care * Moon Chaudhry - 09/13/2024 8:29 AM EDT 09/13/2024 8:00 AM Type of Visit: Emergency Department Date of ED/UC Visit: 09/12/24 Facility: Other in state Facility Name (In State) [facility] [address] [place] [address] Diagnosis Category/ies: Mental Health Discharge Diagnosis: Suicidal ideation (Primary Dx Disposition: (!) Admitted Records: Please see CareEverywhere for full documentation Routing to PCP and as an FYI. documented in this encounter Plan of Treatment Not on file documented as of this encounter Visit Diagnoses Not on filedocumented in this encounter Additional Health Concerns Assessment Noted Time PHQ-9 Depression Total Score: 12 024 9:00 AM PST documented as of this encounter Care Teams Programmer Or Analyst Relationship Specialty Start Date End Date Nguyen Kohler DO [address] [place] [id number] PCP - General Family Medicine, Physician 03/21/24 documented as of this encounter
--- OUTSIDE RECORDS SUMMARY | 2024-09-17 14:49 | XMS_ITS | Clinical Summary ---
Author Organization [facility] Address [address] [place] [phone] Phone Care Team Providers Care Conservator Artifacts Name Role Phone Javed Garcia MD, PhD Primary Care Provider [phone] Ilia Eden MD Unavailable [phone] Allergies Active Allergy Reactions Criticality Noted Date Comments Haloperidol Swelling Medium 02/28/2024 Medications acetaminophen (TYLENOL) 325 mg tablet 01/20/2024 Active ARIPiprazole (ABILIFY) 15 MG tablet 01/20/2024 Active buPROPion (WELLBUTRIN) 100 MG immediate release tablet 01/20/2024 Acti ve CHOLECALCIFEROL 25 mcg (1,000 unit) tablet 01/20/2024 Active cloNIDine HCL (CATAPRES) 0.1 MG tablet 01/20/2024 Active lisinopril (PRINIVIL,ZESTRIL) 40 MG tablet 01/20/2024 Active prazosin (MINIPRESS) 5 MG capsule 01/20/2024 Active topiramate (TOPAMAX) 100 MG tablet 01/20/2024 Active Active Problems Problem Noted Date Diagnosed Date 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 Concussion with loss of consciousness 02/24/2024 Other chronic pain 02/24/2024 Encounters Date Type Department Care Team Description 06/28/2024 Orders Only [facility] Department of Orthopaedics [address] [place] [address] Jerald Vuong MA Pain (Primary Dx) from [...] Assigned at Male 02/17/2024 9:22 AM EDT Legal Sex Male 9:13 PM EDT Gender Identity Male 02/17/2024 9:22 AM [...] age to complete this topic MENINGOCOCCAL VACCINES (B) Aged Out N o longer eligible based on patient's age to complete this topic Medical Devices Not on file Insurance C3 ACO C3 ACO Care Teams Conservator Artifacts Relationship Specialty Start Date End Date Javed Garcia MD, PhD [email or web address] PCP - General Internal Medicine 02/23/24 Ilia Eden MD [address] [place] [id number] [email or web address] 02/17/24 Additional Source Comments The information contained in this document represents components of the legal health record. It is not the complete legal health record.[facility]
--- OUTSIDE RECORDS SUMMARY | 2024-09-17 14:49 | XMS_ITS | Encounter Summary ---
Author Organization [facility] Address [address] [place] [address] Care Team Providers Care Electrician Locomotive Name Role Phone Physician, Pcp Unknown Primary Care Provider Anna vailable Encounter Details Date Type Department Care Team (Late st Contact Info) Description 07/14/2024 Lab Requisition [facility] - Main Lab [address] [facility] [place] [address] Crista Clay Other fci (current) drug therapy Social History Tobacco Use Types Packs/Day Years [...] Procedure Name Priority Date/Time Associated Diagnosis Comments LIPID PANEL WITH REFLEX TO DIRECT LDL Routine 07/14/2024 7:00 AM EST Other fci (current) drug therapy CBC WITH AUTO DIFFERENTIAL Routine 07/14/2024 7:00 AM EST Other terminal makeup operator (current) drug therapy CBC AND DIFFERENTIAL Routine 07/14/2024 7:00 AM EST Other fci (current) drug therapy HEMOGLOBIN A1C Routine 07/14/2024 7:00 AM EST Other terminal makeup operator (current) drug therapy COMPREHENSIVE METABOLIC PANEL Routine 07/14/2024 7:00 AM EST Other fci (current) drug therapy documented in this encounter Results * (ABNORMAL) CBC auto differential (07/14/2024 7:00 AM [facility]) [facility] WBC 6.7 4.8 - 10.8 K/mcL LAB HEMETOLOGY METHOD 07/14/2024 11:03 AM [facility] RBC 4.90 4.50 - 5.50 M/mcL LAB HEMETOLOGY METHOD 07/14/2024 11:03 AM [facility] Hemoglobin 14.1 13.5 - 17.5 g/dL LAB HEMETOLOGY METHOD 07/14/2024 11:03 AM [facility] Hematocrit 45.8 42.0 - 54.0 % LAB HEMETOLOGY METHOD 07/14/2024 11:03 AM [facility] MCV 93.5 79.0 - 98.0 FL LAB HEMETOLOGY METHOD 07/14/2024 11:03 AM [facility] MCH 28.8 27.0 - 32.0 pcg LAB HEMETOLOGY METHOD 07/14/2024 11:03 AM [facility] MCHC 30.8(L) 32.0 - 37.0 g/dL LAB HEMETOLOGY METHOD 07/14/2024 11:03 AM [facility] RDW 14.8 11.0 - 15.0 % LAB HEMETOLOGY METHOD 07/14/2024 11:03 AM [facility] Platelets 201 130 - 400 K/mcL LAB HEMETOLOGY METHOD 07/14/2024 11:03 AM [facility] MPV 10.7 7.0 - 11.0 FL LAB HEMETOLOGY METHOD 07/14/2024 11:03 AM [facility] NRBC 0.0 <1.0 % LAB HEMETOLOGY METHOD 07/14/2024 11:03 AM [facility] NRBC Absolute 0.00 <0.10 K/mcL LAB HEMETOLOGY METHOD 07/14/2024 11:03 AM [facility] Neutrophils Relative 49.4 % LAB HEMETOLOGY METHOD 07/14/2024 11:03 AM [facility] Lymphocytes Relative 31.0 % LAB HEMETOLOGY METHOD 07/14/2024 11:03 AM [facility] Monocytes Relative 7.6 % LAB HEMETOLOGY METHOD 07/14/2024 11:03 AM [facility] Eosinophils Relative 10.9 % LAB HEMETOLOGY METHOD 07/14/2024 11:03 AM [facility] Basophils Relative 0.7 % LAB HEMETOLOGY METHOD 07/14/2024 11:03 AM [facility] Immature Granulocytes Relative 0.4 % LAB HEMETOLOGY METHOD 07/14/2024 11:03 AM [facility] Neutrophils Absolute 3.30 1.50 - 7.00 K/mcL LAB HEMETOLOGY METHOD 07/14/2024 11:03 AM [facility] Lymphocytes Absolute 2.08 1.00 - 5.00 K/mcL LAB HEMETOLOGY METHOD 07/14/2024 11:03 AM [facility] Monocytes Absolute 0.51 0.20 - 1.00 K/mcL LAB HEMETOLOGY METHOD 07/14/2024 11:03 AM [facility] Eosinophils Absolute 0.73(H) 0.00 - 0.50 K/mcL LAB HEMETOLOGY METHOD 07/14/2024 11:03 AM [facility] Basophils Absolute 0.05 0.00 - 0.20 K/mcL LAB HEMETOLOGY METHOD 07/14/2024 11:03 AM [facility] Immature Granulocytes Absolute 0.03 0.00 - 0.03 K/mcL LAB HEMETOLOGY METHOD 07/14/2024 11:03 AM [facility] Blood Venous blood specimen / Unknown Venipuncture / Unknown 07/14/2024 7:00 AM EST 07/14/2024 10:41 AM EST [facility] LAB BLOOD ORDERABLES Final Resul t Performing Organization Address City/[facility]/ZIP Co de Phone Number [facility] [address] [place] [address], [place] [phone] * (ABNORMAL) Lipid panel with reflex to direct LDL (07/14/2024 7:00 AM EST) Cholesterol 187 0 - 200 mg/dL LAB CHEMISTRY METHOD 07/14/2024 11:19 AM EST [facility] Triglycerides 179(H) 0 - 150 mg/dL LAB CHEMISTRY METHOD 07/14/2024 11:19 AM EST [facility] HDL 54 >=40 mg/dL LAB CHEMISTRY METHOD 07/14/2024 11:19 AM EST [facility] LDL Calculated 97 0 - 100 mg/dL LAB CHEMISTRY METHOD 07/14/2024 11:19 AM EST [facility] VLDL Cholesterol Edison 35.8 mg/dL LAB CHEMISTRY METHOD 07/14/2024 11:19 AM EST [facility] Non HDL Chol. (LDL+VLDL) 133 <145 mg/dL LAB CHEMISTRY METHOD 07/14/2024 11:19 AM EST [facility] Chol/HDL Ratio 3.5 0.0 - 4.4 LAB CHEMISTRY METHOD 07/14/2024 11:19 AM [facility] Blood Venous blood specimen / Unknown Venipuncture / Unknown 07/14/2024 7:00 AM EST 07/14/2024 10:41 AM EST [facility] LAB BLOOD ORDERABLES Final Resul t Performing Organization Address [facility]/ZIP Co de Phone Number [facility] [address] [place] [address], [place] [phone] * (ABNORMAL) Comprehensive metabolic panel (07/14/2024 7:00 AM EST) Sodium 142 133 - 145 mmol/L LAB CHEMISTRY METHOD 07/14/2024 11:20 AM [facility] Potassium 4.6 3.5 - 5.5 mmol/L LAB CHEMISTRY METHOD 07/14/2024 11:20 AM [facility] Chloride 106 96 - 110 mmol/L LAB CHEMISTRY METHOD 07/14/2024 11:20 AM [facility] CO2 31 21 - 32 mmol/L LAB CHEMISTRY METHOD 07/14/2024 11:20 AM [facility] Anion Gap 5 3 - 11 LAB CHEMISTRY METHOD 07/14/2024 11:20 AM [facility] Glucose 55(L) 70 - 100 mg/dL LAB CHEMISTRY METHOD 07/14/2024 11:20 AM [facility] BUN 18 5 - 25 mg/dL LAB CHEMISTRY METHOD 07/14/2024 11:20 AM [facility] Creatinine 0.92 0.70 - 1.30 mg/dL LAB CHEMISTRY METHOD 07/14/2024 11:20 AM [facility] eGFR 109 >=60 mL/min/1. 73m2 LAB CHEMISTRY METHOD 07/14/2024 11:20 AM [facility] Comment:Calculation based on the??Chronic Kidney Disease Epidemiology Collaboration (CKD-EPI) equation refit??without adjustment for race. BUN/Creatinine Ratio 19.6 LAB CHEMISTRY METHOD 07/14/2024 11:20 AM [facility] Calcium 9.5 8.5 - 10.5 mg/dL LAB CHEMISTRY METHOD 07/14/2024 11:20 AM [facility] AST (SGOT) 16 10 - 42 unit/L LAB CHEMISTRY METHOD 07/14/2024 11:20 AM [facility] ALT (SGPT) 18 10 - 60 unit/L LAB CHEMISTRY METHOD 07/14/2024 11:20 AM [facility] Alkaline Phosphatase 91 42 - 121 unit/L LAB CHEMISTRY METHOD 07/14/2024 11:20 AM EST [facility] Total Protein 7.5 6.0 - 8.0 g/dL LAB CHEMISTRY METHOD 07/14/2024 11:20 AM EST [facility] Albumin 3.7 3.2 - 5.0 g/dL LAB CHEMISTRY METHOD 07/14/2024 11:20 AM EST [facility] Total Bilirubin 0.2 0.0 - 1.4 mg/dL LAB CHEMISTRY METHOD 07/14/2024 11:20 AM EST [facility] Blood Venous blood specimen / Unknown Venipuncture / Unknown 07/14/2024 7:00 AM EST 07/14/2024 10:41 AM EST [facility] LAB BLOOD ORDERABLES Final Resul t Performing Organization Address City/[facility]/ZIP Co de Phone Number [facility] [address] [place] [address], [place] [phone] * Hemoglobin A1c (07/14/2024 7:00 AM EST) Hemoglobin A1C 5.5 <6.5 % LAB CHEMISTRY METHOD 07/15/2024 8:06 AM EDT [facility] Mean Bld Glu Estim. 111 mg/dL LAB CHEMISTRY METHOD 07/15/2024 8:[facility] Blood Venous blood specimen / Unknown Venipuncture / Unknown 07/14/2024 7:00 AM EST 07/14/2024 10:41 AM EST [facility] LAB BLOOD ORDERABLES Final Resul t Performing Organization Address City/[facility]/ZIP Co de Phone Number [facility] [address] [place] [address], [place] [phone] documented in this encounter Visit Diagnoses Diagnosis Other fci (current) drug therapy documented in this encounter Care Teams Electrician Locomotive Relationship Specialty Start Date End Date Physician, Pcp Unknown PCP - General 09/10/24 documented as of this encounter
[2024-09-17 14:50] VITALS: BP 92/50; PULSE 94; RESP 20; O2SAT 97
--- OUTSIDE RECORDS SUMMARY | 2024-09-17 14:50 | XMS_ITS | Clinical Summary ---
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 mediastinal lymph nodes. No acute findings with limited sections through the upper abdomen. There is a periphery calcified lesion in the right posterior suprahilar region for example series 3, image 37/132 that measures 1.5 cm.Extending from this is some patchy and bandlike airspace opacities, into the right upper lobe. There is a chronic appearing right 3rd anterior and 4th, 5th and 6 posterior rib fracture deformities. Mild dependent atelectatic changes in the visualized lung bases. No acute fractures identified. IMPRESSION: There is a 1.5 cm periphery calcified lesion in the posterior right suprahilar region, unclear etiology but potentially from oldgranulomatous disease or foreign body aspiration. There subjacent airspace opacities extending to the right upper lobe most likely reflecting scarring or postobstruction atelectasis or infiltrates, although neoplasm could havea similar appearance. Please correlate clinically with appropriatefollow-up and consideration for bronchoscopy and/or FDG PET scan. Short interval follow-up chest CT also recommended in 4 weeks. See findings section of the report. This document has been electronically signed by: Marcos Tolentino MD on 09/04/2024 04:16:58 us Kevyn Tripp MD IMG CT PROCEDURES Edited Result - Final * B-type natriuretic peptide (09/03/2024 8:53 PM EDT) BNP 6 <=100 pcg/mL LAB CHEMISTRY METHOD 09/03/2024 9:47 PM EDT [facility] Blood Venous blood specimen / Unknown Venipuncture / Unknown 09/03/2024 8:53 PM EDT 09/03/2024 9:00 PM EDT us Kevyn Tripp MD LAB BLOOD ORDERABLES Final Resu lt Performing Organization Address City/[facility]/ZIP Co de Phone Number [facility] [address] [place] [address], * Magnesium (09/03/2024 8:53 PM EDT) Pathologist [facility] Magnesium 2.2 1.9 - 2.6 mg/dL LAB CHEMISTRY METHOD 09/03/2024 9:41 PM EDT [facility] Blood Venous blood specimen / Unknown Venipuncture / Unknown 09/03/2024 8:53 PM EDT 09/03/2024 9:00 PM EDT us Kevyn Tripp MD LAB BLOOD ORDERABLES Final Resu lt [facility] [address] [place] [address], * Lipase (09/03/2024 8:53 PM EDT) Lipase 38 13 - 75 unit/L LAB CHEMISTRY METHOD 09/03/2024 9:41 PM EDT [facility] Blood Venous blood specimen / Unknown Venipuncture / Unknown 09/03/2024 8:53 PM EDT 09/03/2024 9:00 PM EDT Kevyn Tripp MD LAB BLOOD ORDERABLES Final Resu lt [facility] [address] [place] [address], [place] [phone] * (ABNORMAL) Lipid panel with reflex to direct LDL (07/14/2024 7:00 AM EST) Cholesterol 187 0 - 200 mg/dL LAB CHEMISTRY METHOD 07/14/2024 11:19 AM EST [facility] Triglycerides 179(H) 0 - 150 mg/dL LAB CHEMISTRY METHOD 07/14/2024 11:19 AM EST [facility] HDL 54 >=40 mg/dL LAB CHEMISTRY METHOD 07/14/2024 11:19 AM EST [facility] LDL Calculated 97 0 - 100 mg/dL LAB CHEMISTRY METHOD 07/14/2024 11:19 AM EST [facility] VLDL Cholesterol Edison 35.8 mg/dL LAB CHEMISTRY METHOD 07/14/2024 11:19 AM EST [facility] Non HDL Chol. (LDL+VLDL) 133 <145 mg/dL LAB CHEMISTRY METHOD 07/14/2024 11:19 AM EST [facility] Chol/HDL Ratio 3.5 0.0 - 4.4 LAB CHEMISTRY METHOD 07/14/2024 11:19 AM [facility] Blood Venous blood specimen / Unknown Venipuncture / Unknown 07/14/2024 7:00 AM EST 07/14/2024 10:41 AM EST Crista Clay LAB BLOOD ORDERABLES Final Resul t [facility] [address] [place] [address], [place] [phone] * Hemoglobin A1c (07/14/2024 7:00 AM EST) Hemoglobin A1C 5.5 <6.5 % LAB CHEMISTRY METHOD 07/15/2024 8:06 AM EDT [facility] Mean Bld Glu Estim. 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
[2024-09-17] MEDS: 0.9 % Sodium Chloride 1,000 ML 999 ML IV ×2 (14:56→15:58)
[2024-09-17 14:58] LABS: Influenza A PCR NEGATIVE (Negative); Influenza B PCR NEGATIVE (Negative); Resp Syncy Virus RNA Qual PCR NEGATIVE (Negative); SARS COV2 PCR INHOUSE NEGATIVE (Negative)
[2024-09-17] MEDS: Aspirin 81 MG TAB.CHEW 324 MG PO (14:58)
[2024-09-17] MEDS: iohexoL 350 MG/ML 100 ML INFUS..BTL IV (15:17)
[2024-09-17 16:23] LABS: Troponin-I High Sensitivity 49.5 ng/L (<3.5-35.0)
--- NOTE | 2024-09-17 16:34 | ECG_ITS ---
Test Reason : ELEVATED TROP Blood Pressure : */* mmHG Vent. Rate : 81 BPM Atrial Rate : 81 BPM P-R Int : 176 ms QRS Dur : 94 ms QT Int : 386 ms P-R-T Axes : 59 26 27 degrees QTcB Int : 448 ms Normal sinus rhythm Normal ECG When compared with ECG of 17-Sep-2024 14:06, No significant change was found Referred By: Phan Awan Electronically Signed By: RALPH MONTANEZ MD
[2024-09-17 16:37] VITALS: BP 124/82; PULSE 83; RESP 18; O2SAT 100
[2024-09-17 16:47] VITALS: BP 111/78; BP 137/102; BP 178/118; PULSE 107; PULSE 76; PULSE 93
[2024-09-17 17:05] VITALS: BP 178/118; PULSE 107; RESP 16; TEMP 36.8; O2SAT 97
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
== END 2024-09-17 17:39 | disposition home or self-care (01) ==
PROVIDERS: Physician Assistant; Emergency Provider Student in an Organized Health Care Education/Training Program
DX: R42 Dizziness and giddiness (principal); I10 Essential (primary) hypertension; R00.0 Tachycardia, unspecified; F43.10 Post-traumatic stress disorder, unspecified; Z03.818 Encounter for observation for suspected exposure to other biological agents ruled out; Z79.899 Other long term (current) drug therapy
CPT/HCPCS: 0241U; 36415; 71275; 80053; 83690; 84484; 85025; 93005; 96360; 99284; Q9967

== ENCOUNTER → 2024-09-17 14:03 | Outpatient (BNV) | payer OTHER, SELFPAY | PROVIDERS: Emergency Provider Student in an Organized Health Care Education/Training Program; Visit Provider Internal Medicine Cardiovascular Disease | DX: R79.89 Other specified abnormal findings of blood chemistry (principal) | CPT/HCPCS: 93010 ==

== ENCOUNTER → 2024-09-17 14:55 | Outpatient (BNV) | payer OTHER, SELFPAY | PROVIDERS: Emergency Provider Student in an Organized Health Care Education/Training Program; Visit Provider Radiology Diagnostic Radiology | DX: R91.8 Other nonspecific abnormal finding of lung field (principal) | CPT/HCPCS: 71275 ==